=== PATIENT | male | born 1960 | race Caucasian/White ===

== ENCOUNTER 2017-04-07 07:37 | Emergency (ER) | payer MEDICAID, OTHER ==
[~2017-04-07] VITALS: Ht 167.6 cm; Wt 65.9 kg
[2017-04-07] MEDS ORDERED: ASPI325T28 PO (07:58)
[2017-04-07] MEDS ORDERED: OXAZEPAM 15 MG CAP PO ONE (08:00)
[2017-04-07] MEDS ORDERED: NS 1,000 ML IV ONE (08:00)
--- NOTE | 2017-04-07 08:13 | REP ---
Chest one-view HISTORY: Chest pain Comparison: None The lungs are clear. The heart is normal in size. The pulmonary vasculature is normal in appearance. Impression: No acute disease. Signed by Too Walter MD 04/07/2017 08:05 A
[2017-04-07 08:17] LABS: BASO % 0.5 % (0.0-1.0); EOS # 0.1 K/mm3 (0.0-0.50); EOS % 1.4 % (0.0-3.0); LARGE UNSTAINED CELL # 0.1 K/mm3 (0.0-0.4); LARGE UNSTAINED CELL % 1.7 % (0.0-4.0); LYMPH % 14.8 % (24.0-44.0); MEAN CORPUSCULAR HEMOGLOBIN 32.6 pg (27.0-33.0); MEAN CORPUSCULAR HGB CONC 33.1 g/dl (32.0-36.5); MEAN CORPUSCULAR VOLUME 98.6 fl (80.0-96.0); MONO # 0.5 K/mm3 (0.0-0.8); MONO % 7.2 % (0.0-5.0); NEUTROPHILS # 4.6 K/mm3 (1.8-7.7); NEUTROPHILS % 74.4 % (36.0-66.0); PLATELET COUNT, AUTOMATED 258 k/mm3 (150-450); RED CELL DISTRIBUTION WIDTH 14.7 % (11.5-14.5); WHITE BLOOD COUNT 6.2 K/mm3 (4.0-10.0)
[2017-04-07 08:26] LABS: INR 0.99
[2017-04-07 08:40] LABS: ALBUMIN 4.2 GM/DL (3.2-5.2); ALBUMIN/GLOBULIN RATIO 1.35 (1.00-1.93); ALKALINE PHOSPHATASE 59 U/L (45-117); ALT/SGPT 32 U/L (12-78); ANION GAP 8 MEQ/L (8-16); AST/SGOT 32 U/L (15-37); BILIRUBIN,DIRECT 0.1 MG/DL (0.0-0.2); BILIRUBIN,TOTAL 0.4 MG/DL (0.2-1.0); BLOOD UREA NITROGEN 6 MG/DL (7-18); CALCIUM LEVEL 8.9 MG/DL (8.5-10.1); CARBON DIOXIDE LEVEL 25 MEQ/L (21-32); CHLORIDE LEVEL 100 MEQ/L (98-107); FREE T4 1.01 NG/DL (0.76-1.46); GLOMERULAR FILTRATION RATE > 60.0 (>56); GLUCOSE, FASTING 91 MG/DL (70-105); SODIUM LEVEL 133 MEQ/L (136-145); TOTAL PROTEIN 7.3 GM/DL (6.4-8.2)
[2017-04-07] MEDS ORDERED: PIPERACILLIN/TAZOBACTAM SOD 3.375 GM in D5W MINI-BAG PLUS 50 ML IV ONE (08:45)
[2017-04-07] MEDS ORDERED: ISOVUE-370 76% 100ML VIAL (Q9967) As Ordered ONE (09:17)
[2017-04-07 10:33] VITALS: BP 149/78
--- NOTE | 2017-04-07 10:57 | REP ---
CT ANGIO CHEST: HISTORY: Shortness of breath. CONTRAST: Isovue-370, 75 mL. There are no filling defects in the main, right and the left pulmonary arteries or their branches. The lungs are clear. There is no pleural effusion. There is no mediastinal mass. The heart is normal in size. IMPRESSION: There is no pulmonary embolism. Signed by Too Walter MD 04/07/2017 11:06 A
--- NOTE | 2017-04-07 11:22 | ECGEPIP ---
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
== END 2017-04-07 10:40 | disposition home or self-care (01) ==
LOC: M ED 07:37
DX: R06.00 Dyspnea, unspecified (principal); R42 Dizziness and giddiness; F17.210 Nicotine dependence, cigarettes, uncomplicated
CPT/HCPCS: 36415; 71010; 71275; 80048; 80076; 82550; 82553; 83880; 84439; 84443; 85025; 85379; 85610; 85730; 93005; 93041; 94760; 96360; 96361; 99285; Q9967

== ENCOUNTER 2017-04-19 00:40 | Emergency (ER) | payer MEDICAID, SELFPAY ==
[~2017-04-19] VITALS: Ht 167.6 cm; Wt 76.0 kg
[~2017-04-19 00:40] MED LIST: ASPI325T28 PO
[2017-04-19 00:46] VITALS: BP 151/81
== END 2017-04-19 02:51 | disposition home or self-care (01) ==
LOC: EDBD 00:40 → M ED 00:40
DX: F10.129 Alcohol abuse with intoxication, unspecified (principal); Z72.0 Tobacco use

== ENCOUNTER → 2018-07-09 | Outpatient (REF) | payer MEDICAID, SELFPAY ==
[2018-07-09 20:22] LABS: BASO # 0.1 10^3/uL (0.0-0.2); BASO % 0.6 % (0.0-1.0); EOS # 0.2 10^3/uL (0.0-0.50); EOS % 2.3 % (0.0-3.0); HEMATOCRIT 41.3 % (42.0-52.0); HEMOGLOBIN 13.8 g/dl (13.5-17.5); IMMATURE GRANULOCYTE % 0.3 % (0-3.0); LYMPH % 23.5 % (24.0-44.0); MEAN CORPUSCULAR HEMOGLOBIN 32.2 pg (27.0-33.0); MEAN CORPUSCULAR HGB CONC 33.4 g/dl (32.0-36.5); MEAN CORPUSCULAR VOLUME 96.3 fl (80.0-96.0); MONO # 0.6 10^3/uL (0.0-0.8); MONO % 6.5 % (0.0-5.0); NEUTROPHILS # 5.8 10^3/uL (1.8-7.7); NEUTROPHILS % 66.8 % (36.0-66.0); PLATELET COUNT, AUTOMATED 264 10^3/uL (150-450); RED BLOOD COUNT 4.29 10^6/uL (4.30-6.10); RED CELL DISTRIBUTION WIDTH 14.5 % (11.5-14.5); WHITE BLOOD COUNT 8.6 10^3/uL (4.0-10.0)
[2018-07-09 20:41] LABS: ALBUMIN 4.2 GM/DL (3.2-5.2); ALKALINE PHOSPHATASE 53 U/L (45-117); ALT/SGPT 16 U/L (12-78); ANION GAP 7 MEQ/L (8-16); AST/SGOT 12 U/L (7-37); BILIRUBIN,TOTAL 0.3 MG/DL (0.2-1.0); BLOOD UREA NITROGEN 12 MG/DL (7-18); CALCIUM LEVEL 8.7 MG/DL (8.5-10.1); CARBON DIOXIDE LEVEL 28 MEQ/L (21-32); CHLORIDE LEVEL 107 MEQ/L (98-107); CHOLESTEROL LEVEL 212 MG/DL (<200); CHOLESTEROL RISK RATIO 4.076 (<5); CREATININE FOR GFR 0.81 MG/DL (0.70-1.30); GLOMERULAR FILTRATION RATE > 60.0 (>56); GLUCOSE, FASTING 88 MG/DL (70-100); HDL CHOLESTEROL 52 MG/DL (>40); LDL CHOLESTEROL 141 MG/DL (<100); NON-HDL-C 160 MG/DL; POTASSIUM SERUM 4.1 MEQ/L (3.5-5.1); SODIUM LEVEL 142 MEQ/L (136-145); TOTAL PROTEIN 7.2 GM/DL (6.4-8.2); TRIGLYCERIDES LEVEL 97 MG/DL (<150)
[2018-07-09 20:42] LABS: TOTAL 25(OH) VITAMIN D 21.1 NG/ML (30.0-100.0)
[2018-07-09 20:47] LABS: ESTIMATED AVERAGE GLUCOSE 100 MG/DL (60-110); HEMOGLOBIN A1c 5.1 %
[2018-07-11 11:17] LABS: HIV 1&2 SCREEN CENTAUR NEGATIVE (NEGATIVE)
[2018-07-11 14:18] LABS: HEPATITIS C VIRUS ABY INDEX < 0.0 INDEX (<0.8)
== END ==
LOC: M LAB REF 09:59
DX: Z00.00 Encounter for general adult medical examination without abnormal findings (principal); R53.81 Other malaise
CPT/HCPCS: 84443

== ENCOUNTER → 2018-08-06 | Outpatient (REF) | payer MEDICAID | LOC: M LAB REF 14:10 | DX: D10.5 Benign neoplasm of other parts of oropharynx (principal) ==

== ENCOUNTER 2019-03-27 20:05 | Emergency (ER) | payer MEDICAID ==
[~2019-03-27] VITALS: Ht 167.6 cm; Wt 72.7 kg
[~2019-03-27 20:05] MED LIST changes: +ASPI-527 PO; -ASPI325T28 PO
[2019-03-27 20:13] VITALS: BP 151/86
== END 2019-03-27 21:02 | disposition left against medical advice (07) ==
LOC: M ED 20:05
DX: F10.10 Alcohol abuse, uncomplicated (principal); Z53.21 Procedure and treatment not carried out due to patient leaving prior to being seen by health care provider

== ENCOUNTER 2019-03-28 21:08 | Emergency (ER) | payer MEDICAID ==
[~2019-03-28 21:08] MED LIST changes: +ASPI-222 PO; -ASPI-527 PO
[2019-03-28 21:27] LABS: HEMATOCRIT 36.9 % (42.0-52.0); HEMOGLOBIN 13.1 g/dl (13.5-17.5); MEAN CORPUSCULAR HEMOGLOBIN 33.7 pg (27.0-33.0); MEAN CORPUSCULAR HGB CONC 35.5 g/dl (32.0-36.5); MEAN CORPUSCULAR VOLUME 94.9 fl (80.0-96.0); PLATELET COUNT, AUTOMATED 236 10^3/uL (150-450); RED BLOOD COUNT 3.89 10^6/uL (4.30-6.10); WHITE BLOOD COUNT 8.1 10^3/uL (4.0-10.0)
[2019-03-28 21:40] LABS: AMPHETAMINES LEVEL URINE NEGATIVE (NEGATIVE); BARBITURATES URINE NEGATIVE (NEGATIVE); BENZODIAZEPINES URINE NEGATIVE (NEGATIVE); CANNABINOIDS URINE NEGATIVE (NEGATIVE); COCAINE METABOLITE URINE NEGATIVE (NEGATIVE); METHADONE URINE NEGATIVE (NEGATIVE); OPIATES URINE NEGATIVE (NEGATIVE); PHENCYCLIDINE URINE NEGATIVE (NEGATIVE)
[2019-03-28 21:53] LABS: ACETAMINOPHEN LEVEL < 2.0 UG/ML (10.0-30.0); ALBUMIN 4.2 GM/DL (3.2-5.2); ALT/SGPT 53 U/L (12-78); BILIRUBIN,DIRECT 0.3 MG/DL (0.0-0.2); BILIRUBIN,TOTAL 0.6 MG/DL (0.2-1.0); BLOOD UREA NITROGEN 9 MG/DL (7-18); CALCIUM LEVEL 7.8 MG/DL (8.5-10.1); CARBON DIOXIDE LEVEL 23 MEQ/L (21-32); CHLORIDE LEVEL 101 MEQ/L (98-107); CREATININE FOR GFR 0.62 MG/DL (0.70-1.30); ETHYL ALCOHOL (ETHANOL) 0.291 % (0.000-0.010); GLOMERULAR FILTRATION RATE > 60.0 (>56); GLUCOSE, FASTING 76 MG/DL (70-100); POTASSIUM SERUM 3.8 MEQ/L (3.5-5.1); SALICYLATE LEVEL 3.2 MG/DL (5.0-30.0); SODIUM LEVEL 134 MEQ/L (136-145); THYROID STIMULATING HORMONE 0.883 uIU/ML (0.358-3.740)
[2019-03-29 06:58] VITALS: BP 133/89
== END 2019-03-29 07:57 | disposition home or self-care (01) ==
LOC: M ED 21:08
DX: F10.129 Alcohol abuse with intoxication, unspecified (principal); Y90.1 Blood alcohol level of 20-39 mg/100 ml; F91.9 Conduct disorder, unspecified; F31.9 Bipolar disorder, unspecified; Z79.82 Long term (current) use of aspirin
CPT/HCPCS: 36415; 80048; 80076; 80307; 84443; 85027; 99284; G0480

== ENCOUNTER 2019-04-23 03:40 | Emergency (ER) | payer MEDICAID ==
[2019-04-23 03:51] VITALS: BP 122/82
== END 2019-04-23 04:19 | disposition home or self-care (01) ==
LOC: M ED 03:40
DX: F10.129 Alcohol abuse with intoxication, unspecified (principal); Z79.82 Long term (current) use of aspirin

== ENCOUNTER 2019-05-08 22:56 | Emergency (ER) | payer MEDICAID, OTHER ==
[~2019-05-08 22:56] MED LIST changes: -ASPI-222 PO; +ASPI-527 PO
[2019-05-08 23:40] LABS: BASO # 0.1 10^3/uL (0.0-0.2); BASO % 0.8 % (0.0-1.0); EOS # 0.2 10^3/uL (0.0-0.50); EOS % 2.6 % (0.0-3.0); HEMATOCRIT 35.8 % (42.0-52.0); HEMOGLOBIN 12.6 g/dl (13.5-17.5); LYMPH # 2.5 10^3/uL (1.5-4.5); LYMPH % 39.1 % (24.0-44.0); MEAN CORPUSCULAR HEMOGLOBIN 34.2 pg (27.0-33.0); MEAN CORPUSCULAR HGB CONC 35.2 g/dl (32.0-36.5); MEAN CORPUSCULAR VOLUME 97.3 fl (80.0-96.0); MONO # 0.5 10^3/uL (0.0-0.8); MONO % 7.9 % (0.0-5.0); NEUTROPHILS # 3.2 10^3/uL (1.8-7.7); NEUTROPHILS % 49.3 % (36.0-66.0); PLATELET COUNT, AUTOMATED 308 10^3/uL (150-450); RED BLOOD COUNT 3.68 10^6/uL (4.30-6.10); WHITE BLOOD COUNT 6.4 10^3/uL (4.0-10.0)
[2019-05-08 23:50] LABS: INR 1.09; PROTHROMBIN TIME 13.8 SECONDS (11.8-14.0)
[2019-05-08 23:51] LABS: PARTIAL THROMBOPLASTIN TIME 33.3 SECONDS (25.0-38.4)
[2019-05-08 23:59] LABS: BLOOD UREA NITROGEN 8 MG/DL (7-18); CALCIUM LEVEL 8.2 MG/DL (8.5-10.1); CARBON DIOXIDE LEVEL 26 MEQ/L (21-32); CHLORIDE LEVEL 102 MEQ/L (98-107); CREATININE FOR GFR 0.64 MG/DL (0.70-1.30); GLOMERULAR FILTRATION RATE > 60.0 (>56); GLUCOSE, FASTING 106 MG/DL (70-100); POTASSIUM SERUM 3.4 MEQ/L (3.5-5.1); SODIUM LEVEL 138 MEQ/L (136-145)
[2019-05-09 00:26] LABS: ETHYL ALCOHOL (ETHANOL) 0.249 % (0.000-0.010)
[2019-05-09 02:08] VITALS: BP 107/73
--- NOTE | 2019-06-03 10:52 | REP ---
CT study of the cervical spine without contrast: History: Trauma. Repeat dictation. Preliminary report is provided at the time of exam by [facility]. The study is acquired on May 08, 2019 and is presented to me for repeat dictation on June 03, 2019. Technique: Helical scanning is acquired and overlapping 2 mm high resolution axial images were generated and reviewed at bone and soft tissue window settings. Coronal and sagittal multiplanar re-formations images are generated. CT findings: There is no evidence of cervical spine element fracture. No skull base fracture is seen. Cervical vertebral body heights are preserved. Alignment is normal. Facet joints are normally aligned bilaterally at each cervical level on multiplanar re-formations images. There is no evidence of intraspinal or paraspinal hematoma. No extra vertebral abnormality is seen. There are moderate degenerative spondylosis changes with degenerative disc disease most pronounced at C5-6 and C6-7. There are osteoarthritic facet changes in the mid cervical spine bilaterally. The left C4-5 facet is fused. There is a minimal levoconvex curvature. Impression: Moderate degenerative spondylosis changes. Otherwise negative CT study of the cervical spine without contrast. No fracture seen. Electronically Signed by Mariusz Cardona MD 06/03/2019 10:44 A
--- NOTE | 2019-06-03 10:56 | REP ---
REPEAT DICTATION CT CHEST WITHOUT CONTRAST: HISTORY: Injury in a fall. Blunt trauma. Preliminary report is provided at the time of the exam by [facility]. The study is acquired on May 08, 2019 and is presented to me for repeat dictation on June [address] FINDINGS: Digital preliminary alumnae secretary radiograph is unremarkable. There is no evidence of pneumothorax or hydrothorax or hemothorax. There is minimal bibasilar linear fibrosis. No infiltrate is seen in the lung chauhan. There is no evidence of contusion or mass. There are scattered normal-sized mediastinal lymph nodes. No adenopathy is seen. There is mild vascular calcification in the left coronary artery distribution. A small granulomatous calcification is seen in the dome of the liver. Visualized upper abdominal structures are otherwise unremarkable. Bone window settings show no bony destructive lesion. There are some osteoarthritic changes in the glenohumeral articulations bilaterally. IMPRESSION: No acute disease. Electronically Signed by Mariusz Cardona MD 06/03/2019 03:23 P
--- NOTE | 2019-06-03 10:57 | REP ---
REPEAT DICTATION CT BRAIN WITHOUT CONTRAST: HISTORY: Trauma. Preliminary report is provided at the time of examination by [facility]. The study is acquired on May 08, 2019 and is presented to me for repeat dictation on June 03, 2019. CT FINDINGS: Preliminary automotive manufacturer views are unremarkable. The patient is edentulous. Bone window settings demonstrate an intact bony calvarium. No skull fracture is appreciated. Visualized paranasal sinuses are clear. Lateral, third, and fourth ventricles are normal in size and position. Lutz-white differentiation pattern is normal above and below the tentorium. There is no evidence of intracranial hemorrhage. There is minimal vascular calcification in the distal carotids. No mass, infarct, extra-axial fluid collection, or midline shift is seen. IMPRESSION: Minimal vascular calcification. Otherwise normal noncontrast head CT. Electronically Signed by Mariusz Cardona MD 06/03/2019 03:23 P
== END 2019-05-09 02:12 | disposition home or self-care (01) ==
LOC: M ED 22:56
DX: F10.129 Alcohol abuse with intoxication, unspecified (principal); Y90.1 Blood alcohol level of 20-39 mg/100 ml; Z79.82 Long term (current) use of aspirin
CPT/HCPCS: 36415; 70450; 71250; 72125; 80048; 85025; 85610; 85730; 99284; G0480

== ENCOUNTER 2019-05-17 18:10 | Emergency (ER) | payer OTHER ==
[~2019-05-17] VITALS: Ht 167.6 cm; Wt 63.6 kg
[2019-05-17 18:51] LABS: HEMATOCRIT 37.3 % (42.0-52.0); MEAN CORPUSCULAR HGB CONC 34.9 g/dl (32.0-36.5); MEAN CORPUSCULAR VOLUME 97.6 fl (80.0-96.0); PLATELET COUNT, AUTOMATED 323 10^3/uL (150-450); RED BLOOD COUNT 3.82 10^6/uL (4.30-6.10); WHITE BLOOD COUNT 6.9 10^3/uL (4.0-10.0)
[2019-05-17 19:26] LABS: ACETAMINOPHEN LEVEL < 2.0 UG/ML (10.0-30.0); ALBUMIN 3.9 GM/DL (3.2-5.2); ALT/SGPT 31 U/L (12-78); BILIRUBIN,DIRECT < 0.1 MG/DL (0.0-0.2); BILIRUBIN,TOTAL 0.2 MG/DL (0.2-1.0); BLOOD UREA NITROGEN 7 MG/DL (7-18); CALCIUM LEVEL 8.6 MG/DL (8.5-10.1); CARBON DIOXIDE LEVEL 28 MEQ/L (21-32); CHLORIDE LEVEL 101 MEQ/L (98-107); CREATININE FOR GFR 0.66 MG/DL (0.70-1.30); ETHYL ALCOHOL (ETHANOL) 0.341 % (0.000-0.010); GLOMERULAR FILTRATION RATE > 60.0 (>56); GLUCOSE, FASTING 96 MG/DL (70-100); SALICYLATE LEVEL 3.1 MG/DL (5.0-30.0); SODIUM LEVEL 134 MEQ/L (136-145); THYROID STIMULATING HORMONE 0.903 uIU/ML (0.358-3.740)
[2019-05-17 19:35] LABS: AMPHETAMINES LEVEL URINE NEGATIVE (NEGATIVE); BARBITURATES URINE NEGATIVE (NEGATIVE); BENZODIAZEPINES URINE NEGATIVE (NEGATIVE); CANNABINOIDS URINE NEGATIVE (NEGATIVE); COCAINE METABOLITE URINE NEGATIVE (NEGATIVE); METHADONE URINE NEGATIVE (NEGATIVE); OPIATES URINE NEGATIVE (NEGATIVE); PHENCYCLIDINE URINE NEGATIVE (NEGATIVE)
--- NOTE | 2019-05-17 19:57 | REPVR ---
EXAM: CT Head Without Contrast EXAM DATE/TIME: 05/17/2019 7:06 PM CLINICAL HISTORY: 58 years old, male; Injury or trauma; Fall; Initial encounter; Blunt trauma (contusions or hematomas) TECHNIQUE: Imaging protocol: Computed tomography images of the head without contrast. Radiation optimization: All CT scans at this facility use at least one of these dose optimization techniques: automated exposure control; mA and/or kV adjustment per patient size (includes targeted exams where dose is matched to clinical indication); or iterative reconstruction. COMPARISON: CT Head without contrast 05/08/2019 11:25 PM FINDINGS: Brain: Subtle, patchy areas of hypoattenuation in the periventricular and subcortical white matter, nonspecific but suggestive of mild chronic small vessel ischemic disease. No CT evidence of acute intracranial hemorrhage or acute territorial infarction. No significant mass effect or midline shift. Basal cisterns patent. Ventricles: Prominence of the cortical sulci, cisterns and ventricular system, consistent with cerebral and cerebellar volume loss. Bones/joints: No acute osseous abnormality. Sinuses: Grossly unremarkable. Mastoid air cells: Partial opacification and sclerosis of the right mastoid air cells. Soft tissues: Grossly unremarkable. Vasculature: Minimal calcific atherosclerotic disease in the cavernous internal carotid arteries. IMPRESSION: 1. No CT evidence of acute intracranial pathology. 2. Additional findings, as above. Electronically signed by: Uday Jon On 05/17/2019 19:57:06 PM
--- NOTE | 2019-05-17 20:02 | REPVR ---
EXAM: CT Cervical Spine Without Contrast EXAM DATE/TIME: 05/17/2019 7:06 PM CLINICAL HISTORY: 58 years old, male; Injury or trauma; Fall; Initial encounter; Blunt trauma TECHNIQUE: Imaging protocol: Computed tomography images of the cervical spine without contrast. Coronal and sagittal reformatted images were created and reviewed. Radiation optimization: All CT scans at this facility use at least one of these dose optimization techniques: automated exposure control; mA and/or kV adjustment per patient size (includes targeted exams where dose is matched to clinical indication); or iterative reconstruction. COMPARISON: CT Spine,cervical w/o contrast 05/08/2019 11:25 PM FINDINGS: Vertebrae: Osteopenia. Mild straightening of the normal cervical lordosis. Alignment anatomic. No CT evidence of acute fracture, dislocation or subluxation. Vertebral body heights maintained. Discs/Spinal canal/Neural foramina: Mild multilevel degenerative changes, characterized by disc space narrowing, osteophytosis and uncovertebral and facet joint hypertrophy. Mild multilevel spinal canal and neural foraminal narrowing. Soft tissues: Grossly unremarkable. Lungs: Grossly unremarkable. IMPRESSION: 1. No CT evidence of acute cervical spine traumatic injury. 2. Additional findings, as above. Electronically signed by: Uday Jon On 05/17/2019 20:01:28 PM
[2019-05-17 20:07] VITALS: BP 124/68
== END 2019-05-17 20:23 | disposition home or self-care (01) ==
LOC: M ED 18:10 → EDBD 18:10 → M ED 20:23
DX: F10.129 Alcohol abuse with intoxication, unspecified (principal); Y90.1 Blood alcohol level of 20-39 mg/100 ml; Z79.82 Long term (current) use of aspirin
CPT/HCPCS: 36415; 70450; 72125; 80048; 80076; 80307; 84443; 85027; 99284; G0480

== ENCOUNTER 2019-05-22 19:59 | Emergency (ER) | payer OTHER ==
[~2019-05-22] VITALS: Ht 167.6 cm; Wt 64.2 kg
[2019-05-23 00:56] VITALS: BP 132/84
== END 2019-05-23 00:58 | disposition home or self-care (01) ==
LOC: M ED 19:59
DX: F10.20 Alcohol dependence, uncomplicated (principal); F10.129 Alcohol abuse with intoxication, unspecified; Z72.0 Tobacco use; Z79.82 Long term (current) use of aspirin

== ENCOUNTER 2019-05-29 00:02 | Emergency (ER) | payer OTHER ==
[~2019-05-29] VITALS: Ht 167.6 cm; Wt 64.2 kg
--- NOTE | 2019-05-29 00:47 | REPVR ---
EXAM: CT Head Without Contrast EXAM DATE/TIME: 05/29/2019 12:13 AM CLINICAL HISTORY: 58 years old, male; Injury or trauma; Fall; Initial encounter; Concussion / head injury TECHNIQUE: Imaging protocol: Computed tomography of the head without contrast. Radiation optimization: All CT scans at this facility use at least one of these dose optimization techniques: automated exposure control; mA and/or kV adjustment per patient size (includes targeted exams where dose is matched to clinical indication); or iterative reconstruction. COMPARISON: CT Head without contrast 05/17/2019 7:10 PM FINDINGS: Brain: Subtle, patchy areas of hypoattenuation in the periventricular and subcortical white matter, nonspecific but suggestive of mild chronic small vessel ischemic disease. No CT evidence of acute intracranial hemorrhage or acute territorial infarction. No significant mass effect or midline shift. Basal cisterns patent. Ventricles: Prominence of the cortical sulci, cisterns and ventricular system, consistent with cerebral and cerebellar volume loss. Bones/joints: No acute osseous abnormality. Sinuses: Minimal ethmoid and left maxillary sinus mucosal thickening. Mastoid air cells: Partial opacification and sclerosis of the right mastoid air cells. Soft tissues: Grossly unremarkable. Vasculature: Minimal calcific atherosclerotic disease in the cavernous internal carotid arteries. IMPRESSION: 1. No CT evidence of acute intracranial pathology. 2. Additional findings, as above. Electronically signed by: Uday Jon On 05/29/2019 00:46:39 AM
--- NOTE | 2019-05-29 00:56 | REPVR ---
EXAM: CT Cervical Spine Without Contrast EXAM DATE/TIME: 05/29/2019 12:13 AM CLINICAL HISTORY: 58 years old, male; Injury or trauma; Fall; Initial encounter; Concussion /head injury TECHNIQUE: Imaging protocol: Computed tomography images of the cervical spine without contrast. Axial, coronal and sagittal reformatted images were created and reviewed. Radiation optimization: All CT scans at this facility use at least one of these dose optimization techniques: automated exposure control; mA and/or kV adjustment per patient size (includes targeted exams where dose is matched to clinical indication); or iterative reconstruction. COMPARISON: CT Spine,cervical w/o contrast 05/17/2019 7:10 PM FINDINGS: Vertebrae: Osteopenia. Normal cervical lordosis. Alignment anatomic. Mild levoscoliosis. No CT evidence of acute fracture, dislocation or subluxation. Vertebral body heights maintained. Discs/Spinal canal/Neural foramina: Mild multilevel degenerative changes, characterized by disc space narrowing, osteophytosis and uncovertebral and facet joint hypertrophy. Mild multilevel spinal canal and neural foraminal narrowing. Soft tissues: Grossly unremarkable. Lungs: Grossly unremarkable. IMPRESSION: 1. No CT evidence of acute cervical spine traumatic injury. 2. Additional findings, as above. Electronically signed by: Uday Jon On 05/29/2019 00:55:48 AM
[2019-05-29 03:49] VITALS: BP 114/80
--- NOTE | 2019-05-29 07:56 | REP ---
Clinical: Trauma. Technique: Neutral and frog lateral views of the left hip. Findings: Mild degenerative changes include increased sclerosis at the acetabular roof with subtle adjacent spurring and mild medial joint space narrowing. No acute fracture or dislocation. Vascular calcifications noted. Impression: No acute fracture dislocation. Electronically Signed by Darien Vora MD 05/29/2019 07:48 A
== END 2019-05-29 03:53 | disposition home or self-care (01) ==
LOC: M ED 00:02
DX: F10.129 Alcohol abuse with intoxication, unspecified (principal); Y90.1 Blood alcohol level of 20-39 mg/100 ml; Z79.82 Long term (current) use of aspirin; F17.210 Nicotine dependence, cigarettes, uncomplicated
CPT/HCPCS: 36415; 70450; 72125; 73502; 99284; G0480

== ENCOUNTER 2019-11-21 16:13 | Inpatient (IN) | payer OTHER ==
[~2019-11-21] VITALS: Ht 167.6 cm; Wt 67.3 kg
[2019-11-21] MEDS ORDERED: BUSP10TA PO (16:28)
[2019-11-21] MEDS ORDERED: NS 1,000 ML IV ONE (16:45)
[2019-11-21] MEDS ORDERED: PANTOPRAZOLE 40MG INJ (PROTONIX) (C9113) IV ONE (16:45)
[2019-11-21] MEDS ORDERED: METOCLOPRAMIDE INJ 10MG/2ML VIAL (J2765) IV ONE (16:45)
[2019-11-21 16:56] LABS: BASO # 0.1 10^3/uL (0.0-0.2); BASO % 0.7 % (0.0-1.0); EOS # 0.1 10^3/uL (0.0-0.5); EOS % 0.8 % (0.0-3.0); HEMATOCRIT 41.5 % (42.0-52.0); HEMOGLOBIN 14.1 g/dl (13.5-17.5); LYMPH # 1.2 10^3/uL (1.5-5.0); LYMPH % 13.3 % (24.0-44.0); MEAN CORPUSCULAR HEMOGLOBIN 33.4 pg (27.0-33.0); MEAN CORPUSCULAR VOLUME 98.3 fl (80.0-96.0); MONO # 0.8 10^3/uL (0.0-0.8); MONO % 8.8 % (0.0-5.0); NEUTROPHILS # 6.7 10^3/uL (1.5-8.5); NEUTROPHILS % 75.9 % (36.0-66.0); PLATELET COUNT, AUTOMATED 285 10^3/uL (150-450); RED BLOOD COUNT 4.22 10^6/uL (4.30-6.10); WHITE BLOOD COUNT 8.9 10^3/uL (4.0-10.0)
[2019-11-21 17:12] LABS: INR 1.03; PROTHROMBIN TIME 13.2 SECONDS (11.8-14.0)
[2019-11-21 17:13] LABS: PARTIAL THROMBOPLASTIN TIME 34.3 SECONDS (25.0-38.4)
[2019-11-21 17:25] LABS: ALBUMIN 4.4 GM/DL (3.2-5.2); ALT/SGPT 42 U/L (12-78); BILIRUBIN,DIRECT 0.1 MG/DL (0.0-0.2); BILIRUBIN,TOTAL 0.5 MG/DL (0.2-1.0); BLOOD UREA NITROGEN 12 MG/DL (7-18); CALCIUM LEVEL 8.8 MG/DL (8.8-10.2); CARBON DIOXIDE LEVEL 26 MEQ/L (21-32); CHLORIDE LEVEL 102 MEQ/L (98-107); CK-MB VALUE MASS 9.9 NG/ML (<3.6); CPK CREATINE PHOSPHOKINASE 680 U/L (39-308); CREATININE FOR GFR 0.75 MG/DL (0.70-1.30); GLOMERULAR FILTRATION RATE > 60.0 (>49); GLUCOSE, FASTING 68 MG/DL (70-100); LIPASE 70 U/L (73-393); MB/CK RELATIVE INDEX 1.46 (< OR =4); POTASSIUM SERUM 4.1 MEQ/L (3.5-5.1); SODIUM LEVEL 139 MEQ/L (136-145); TOTAL PROTEIN 7.7 GM/DL (6.4-8.2); TROPONIN I < 0.02 NG/ML (< 0.10)
[2019-11-21] MEDS ORDERED: ISOVUE-370 76% 100ML VIAL (Q9967) As Ordered ONE (17:40)
[2019-11-21] MEDS ORDERED: chlorproMAZINE INJ 50MG/2ML AMP (J3230) IM STA (18:24)
--- NOTE | 2019-11-21 18:32 | REPVR ---
PROCEDURE INFORMATION: Exam: CT Abdomen And Pelvis With Contrast Exam date and time: 11/21/2019 5:41 PM Age: 59 years old Clinical indication: Abdominal pain; Epigastric; Additional info: Epigastric pain; Bloody emesis TECHNIQUE: Imaging protocol: Computed tomography of the abdomen and pelvis with intravenous contrast. Radiation optimization: All CT scans at this facility use at least one of these dose optimization techniques: automated exposure control; mA and/or kV adjustment per patient size (includes targeted exams where dose is matched to clinical indication); or iterative reconstruction. Contrast material: ISOVUE 370; Contrast volume: 100 ml; Contrast route: IV; COMPARISON: CR Hip, Ap,Lat 05/29/2019 12:29 AM FINDINGS: Liver: Diffuse hepatic steatosis. Few scattered subcentimeter low-density lesions throughout the liver, too small to characterize though statistically representing cysts. Gallbladder and bile ducts: Unremarkable. No ductal dilation. Pancreas: Unremarkable. No ductal dilation. Spleen: Unremarkable. Adrenals: Unremarkable. Kidneys and ureters: 1.4 cm low-density cyst in the left kidney, to which no further follow-up is necessary. Additional subcentimeter low density lesions in the left kidney, too small to characterize though statistically representing cysts. No hydronephrosis or stones. Mild bilateral nonspecific perinephric stranding. Stomach and bowel: Severe circumferential wall thickening involving the distal esophagus/gastric cardia. Small and large bowel loops are unremarkable. Appendix: The appendix is normal. Intraperitoneal space: No pneumoperitoneum. No significant fluid collection. Vasculature: Moderate atherosclerotic calcifications of the aorta and major branches. Lymph nodes: No enlarged lymph nodes. Bladder: Mildly distended though otherwise unremarkable. Reproductive: Unremarkable as visualized. Bones/joints: Multilevel mild degenerative changes of the visualized spine. No acute osseous lesion or fracture. Soft tissues: Unremarkable. IMPRESSION: 1. Severe circumferential wall thickening involving the distal esophagus/gastric cardia. Differential includes esophagitis/gastritis versus neoplasm. Recommend GI consultation. 2. Other chronic findings, as above. COMMENTS: Consistent with the [employer]'s Incidental Findings Committee white paper (J Am Caro Radiol 2018): Any incidental cystic renal lesion classified in this report as too small to characterize or simple appearing is likely a benign cyst. No follow-up imaging is recommended for these lesions per consensus recommendations based on imaging criteria. Electronically signed by: Richard Allred On 11/21/2019 18:32:11 PM
[2019-11-21] MEDS ORDERED: NS 1,000 ML IV SCH (19:46)
[2019-11-21] MEDS ORDERED: ONDANSETRON 4MG/2ML VIAL (J2405) IV PRN (20:00)
[2019-11-21] MEDS ORDERED: LORazepam 2 MG/ML VIAL (J2060) IM PRN (20:00)
[2019-11-21] MEDS: THIAMINE HCL 200 MG/2 ML VIAL (J3411) IM SCH (20:24)
[2019-11-21] MEDS: OCTREOTIDE ACETATE 100 MCG/ML VIAL (J2354) IV SCH (20:25)
[2019-11-21 20:30] LABS: INR 1.07; PROTHROMBIN TIME 13.6 SECONDS (11.8-14.0)
[2019-11-21 20:31] LABS: PARTIAL THROMBOPLASTIN TIME 35.3 SECONDS (25.0-38.4)
[2019-11-21] MEDS ORDERED: FOLIC ACID 1 MG in NS 50 ML IV SCH (21:00)
[2019-11-21 21:08] VITALS: BP_SYST 132; BP_SYST 133; BP_SYST 137; BP_DIAS 67; BP_DIAS 71; BP_DIAS 82
--- NOTE | 2019-11-21 21:29 | HPEPDOC ---
[facility] Medical History & Physical Date of Admission Nov 21, 2019 Date of Service: Nov 21, [address] Abelardo Holt Attending Physician: THA BOLAND MD History and Physical CHIEF COMPLAINT: Vomiting blood HISTORY OF PRESENT ILLNESS: Patient is a 59-year-old male who presents to the emergency department earlier this morning with chief complaint of vomiting b lood. Patient says he had the hiccups earlier this morning so he said his fingers in his throat which he says helps him somewhat hiccups. Patient says whenever he vomits he no longer has the hiccups. Patient says he vomited about 4-5 times. Patient states the first vomit looked like it may contain some coffee-like material. The other times he vomited had bright red blood including the last time he vomited having a significant amount according the patient. Patient states that he has not vomited since being in the emergency department and does not feel nauseous at this time. Patient states that he drinks a significant amount of alcohol on a daily basis. He says this number varies depending on the day however, it appears that a 24 pack of beer lasts him 1-2 days. When questioned about some scratches on his forehead, patient states that he tripped over himself drunk a few days ago causing him to fall face first into a wall. Patient reports no headache or any other symptoms from this fall other than the scratches. REVIEW OF SYSTEMS: General: Patient denies fevers, chills, night sweats, unintentional weight loss HEENT: Patient denies headaches, changes in vision, sore throat. Cardiovascular: Patient denies chest pain, chest pressure, or palpitations Respiratory: Patient denies shortness of breath, cough GI: Patient endorses nausea and vomiting earlier today with bloody vomitus. Valeria ent denies constipation or diarrhea : Patient denies pain or difficulty with urination Neurological: Patient denies numbness or tingling in extremities Extremities: Patient denies swelling or pain in extremities Skin: Patient denies any rashes or lesions. Hematologic: Patient denies any easy bruising. Lymphatic: Patient denies any lumps in his neck, axilla, or groin. HOME MEDICATIONS: Please see below. PAST MEDICAL HISTORY: 1. Anxiety. 2. EtOH abuse. Status post hernia repair PAST SURGICAL HISTORY: 1. Multiple surgeries on right arm to repair fractures. 2. umbilical hernia repair. SOCIAL HISTORY: Patient lives at home alone but does have a girlfriend who he drinks alcohol with. Patient states that he does not drink that much when he is with himself however, when he is drinking with his girlfriend, they do drink a significant amount. Patient was unable to quantify the exact amount but he says a 24 pack of beer lasts 1-2 days. Patient says he also smokes and does other kinds of drugs however, he would not specify with the exception of saying he refrains from IV drug use. 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 FAMILY HISTORY: Patient says that high blood pressure may run in his family but he is unsure ALLERGIES: Please see below. PHYSICAL EXAMINATION: VITAL SIGNS: Temperature 98.1, pulse 114, respiratory rate 20, blood pressure 126/68, pulse oximetry 96% on room air. General: Alert and oriented male patient who was laying on a stretcher when I walked in. Patient had scratches on his for head which had dried blood on them. Patient was able to answer questions appropriately and was not in any acute distress. HEENT: Normocephalic, atraumatic, moist mucous membranes, posterior pharynx was nonerythematous Neck: No lymphadenopathy, thyromegaly, or carotid bruits. Cardiac: Tachycardic rate with a regular rhythm. No murmurs, rubs, or gallops. Pulm: Clear to auscultation bilaterally. No wheezes, rhonchi, rales Abd: Nondistended, nontender to palpation, normal bowel sounds Ext: No edema bilateral lower extremities Neuro: No gross neurological defects. Patient does not have any tremor. Skin: Skin of the arms, lower legs, abdomen, back, head and neck were examined did not show any evidence of rash or lesions. LABORATORY DATA: See below. IMAGING: A CT of the abdomen and pelvis with IV contrast only was reported to show severe circumferential wall thickening involving the distal esophagus/gastric cardia. Differential includes esophagitis/gastritis versus neoplasm. There was also diffuse hepatic steatosis with few scattered subcentimeter low-density lesions throughout the liver, too small to characterize though statistically representing cysts, 1.4 cm low-density cyst in the left kidney, to which no further follow-up is necessary. Additional subcentimeter low-density lesion in the left kidney too small to characterize though statistically representing cysts. MICROBIOLOGY: Please see below. ASSESSMENT: Patient is a 59-year-old male who presents to the emergency department with hematemesis and alcohol abuse. . PLAN: 1. Hematemesis. Patient has been started on octreotide and Protonix IV. Patient is also been started on ciprofloxacin IV. Patient will be given Zofran 4 mg IV every 4 hours when necessary for nausea. Gastroenterology has been consulted. Patient will be nothing by mouth at this time secondary to bleeding. Patient has been started on IV fluids. Plan is for gastroenterology to do an upper endoscopy tomorrow. We will continue to monitor the patient's hemoglobin overnight. We will monitor the patient's hemodynamics as well as to see if more urgent interventions are necessary. Patient will be placed in the progressive care unit. 2. Alcohol use disorder. Patient is unable to quantify his drinking however, it is significant as he drinks on a daily basis and a 24 pack appear last him 1-2 days. Patient will be placed on CIWA protocol every 8 hours. At this time the patient does not appear to be in alcohol withdrawal however we will continue to monitor this. Patient also received thiamine and folic acid injections. 3. Nicotine dependence. Patient was counseled on the benefits of quitting smo lou. When necessary nicotine patch as ordered. 4. DVT prophylaxis: Thromboembolic deterrent stockings and sequential compression devices 5. CODE STATUS: Full code Vital Signs Vital Signs Date Time Temp Pulse Resp B/P (MAP) Pulse Ox O2 Delivery O2 Flow Rate FiO2 11/21/19 20:30 114 20 126/68 (87) 96 Room Air 11/21/19 16:24 98.1 Laboratory Data Labs 24H Laboratory Tests 2 11/21/19 16:38: Immature Granulocyte % (Auto) 0.5, Neutrophils (%) (Auto) 75.9H, Lymphocytes (%) (Auto) 13.3L, Monocytes (%) (Auto) 8.8H, Eosinophils (%) (Auto) 0.8, Basophils (%) (Auto) 0.7, Neutrophils # (Auto) 6.7, Lymphocytes # (Auto) 1.2L, Monocytes # (Auto) 0.8, Eosinophils # (Auto) 0.1, Basophils # (Auto) 0.1, Nucleated Red Blood Cells % (auto) 0.0, Prothrombin Time 13.2, Prothromb Time International Ratio 1.03, Activated Partial Thromboplast Time 34.3, Anion Gap 11, Glomerular Filtration Rate > 60.0, Calcium Level 8.8, Total Bilirubin 0.5, Direct Bilirubin 0.1, Aspartate Amino Transf (AST/SGOT) 49H, Alanine Aminotransferase (ALT/SGPT) 42, Alkaline Phosphatase 66, Total Creatine Kinase 680H, Creatine Kinase MB 9.9H, Creatine Kinase MB Relative Index 1.46, Troponin I < 0.02, Total Protein 7.7, Albumin 4.4, Albumin/Globulin Ratio 1.33, Lipase 70L 11/21/19 20:10: Prothrombin Time 13.6, Prothromb Time International Ratio 1.07, Activated Partial Thromboplast Time 35.3, Ethyl Alcohol Level 0.123H CBC/BMP Laboratory Tests 11/21/19 16:38 11/21/19 20:10 Home Medications Scheduled Buspirone HCl (Buspirone HCl) 10 Mg Tablet, 10 MG PO BID Allergies Coded Allergies: No Known Allergies (Unverified , 05/08/19) A-FIB/CHADSVASC A-FIB History Current/History of A-Fib/PAF?: No GME ATTESTATION GME ATTESTATION My faculty preceptor for this patient encounter was physically present during the encounter and was fully available. All aspects of the patient interview, examination, medical decision making process, and medical care plan development were reviewed and approved by the faculty preceptor. The faculty preceptor is aware and concurs with the plan as stated in the body of this note and will atte st to such by his/her cosignature. ATTENDING NOTE Time of service 8:40 PM I reviewed and edited to H&P and agree with the findings as documented by Dr. Thomas. is a 59-year-old male with a past medical history of alcoholism, anxiety, and tobacco abuse who is admitted for evaluation of hematemesis. 1. GI Bleed (Upper) - IV PPI / Octreotide drip / ciprofloxacin / f/u stool H pylori / GI consult for EGD +/-c-scope / type and screen, iron panel /follow-up serial hemoglobin/follow-up orthostats/SCDs 2. Alcohol abuse- C1 protocol/Ativan/folic acid/timing/precautions/seizure precautions 3. Tobacco abuse - smoking cessation education/nicotine patch when necessary ELEUTERIO THOMAS DO Nov 21, 2019 21:29 THA BOLAND MD Nov 21, 2019 23:34
[2019-11-21 21:30] VITALS: BP 133/82
[2019-11-21] MEDS: CIPROFLOXACIN 400 MG in IV 1 EA IV SCH (21:31)
[2019-11-21] MEDS: PANTOPRAZOLE 40MG INJ (PROTONIX) (C9113) IV SCH (21:31)
[2019-11-22] VITALS: BP_SYST 116; BP_SYST 94; BP_DIAS 56; BP_DIAS 67
[2019-11-22 03:44] LABS: HEMATOCRIT 36.1 % (42.0-52.0); HEMOGLOBIN 12.2 g/dl (13.5-17.5); MEAN CORPUSCULAR HEMOGLOBIN 33.2 pg (27.0-33.0); MEAN CORPUSCULAR HGB CONC 33.8 g/dl (32.0-36.5); MEAN CORPUSCULAR VOLUME 98.1 fl (80.0-96.0); PLATELET COUNT, AUTOMATED 231 10^3/uL (150-450); RED BLOOD COUNT 3.68 10^6/uL (4.30-6.10); WHITE BLOOD COUNT 6.8 10^3/uL (4.0-10.0)
[2019-11-22 04:00] VITALS: BP_SYST 125; BP_SYST 130; BP_SYST 137; BP_DIAS 80; BP_DIAS 82; BP_DIAS 85
[2019-11-22] MEDS: OCTREOTIDE ACETATE 100 MCG/ML VIAL (J2354) IV SCH (04:00)
[2019-11-22 04:11] LABS: ALBUMIN 3.5 GM/DL (3.2-5.2); ALT/SGPT 40 U/L (12-78); BILIRUBIN,TOTAL 0.9 MG/DL (0.2-1.0); BLOOD UREA NITROGEN 15 MG/DL (7-18); CALCIUM LEVEL 7.6 MG/DL (8.8-10.2); CARBON DIOXIDE LEVEL 26 MEQ/L (21-32); CHLORIDE LEVEL 106 MEQ/L (98-107); CREATININE FOR GFR 0.74 MG/DL (0.70-1.30); GLOMERULAR FILTRATION RATE > 60.0 (>49); GLUCOSE, FASTING 65 MG/DL (70-100); MAGNESIUM LEVEL 1.9 MG/DL (1.8-2.4); POTASSIUM SERUM 4.3 MEQ/L (3.5-5.1); SODIUM LEVEL 139 MEQ/L (136-145); TOTAL PROTEIN 6.4 GM/DL (6.4-8.2)
[2019-11-22] MEDS ORDERED: D5W/0.9% SODIUM CHLORIDE 1,000 ML IV SCH (04:30)
[2019-11-22] MEDS ORDERED: D5W/0.45% SODIUM CHLORIDE 1,000 ML IV SCH (04:30)
[2019-11-22] MEDS ORDERED: NICOTINE 21MG/24HR 1 EA TRANSDERMAL TD PRN (04:30)
[2019-11-22 06:00] VITALS: BP 137/80
[2019-11-22 07:44] VITALS: BP 140/73
[2019-11-22 07:49] VITALS: BP 140/73
[2019-11-22] MEDS: PANTOPRAZOLE 40MG INJ (PROTONIX) (C9113) IV SCH (08:02)
[2019-11-22] MEDS: CIPROFLOXACIN 400 MG in IV 1 EA IV SCH (08:02)
[2019-11-22] MEDS: THIAMINE HCL 200 MG/2 ML VIAL (J3411) IM SCH (08:02)
[2019-11-22 08:04] LABS: FERRITIN 217 NG/ML (26-388); IRON (FE) 156 UG/DL (65-175); PERCENT SATURATION 65.5 % (19.7-50.0); TOTAL IRON BINDING CAPACITY 238 UG/DL (250-450)
--- NOTE | 2019-11-22 09:30 | CR.PDOC ---
General Date of Consultation: Nov 22, 2019 Referring Provider: MEREDITH MINAYA MD Attending Physician: MICHELLE YING MD Consultation Primary physician/ hospitalist: -Dr. Meredith Minaya, Reason for consult: -Hematemesis HPI: 59-year-old male patient with chronic alcohol use, not following with any PCP, anxiety, presented to ER with complaints of hiccups, followed by self-induced vomiting, and noticing bright red blood on repeated vomitings. GI was consulted for the same. Patient reports having intermittent episodes of hiccups and when it happens, he uses his fingers to induce vomiting, which improves his hiccups as per patient. This time upon introducing vomiting, he noticed bloody vomit at least 2-3 times, moderate to large amount as per patient. Patient denies any further episode of vomiting since arriving to the hospital. Patient denies any tremulousness, or withdrawal symptoms while off alcohol. Patient also has a history of recurrent falls with head injuries in the past, last CT scan of the head done in May 2019, was normal. Pertinent negative GI symptoms: Patient denies fever, sick contacts, recent travel, diarrhea, abdominal pain, loss of appetite, early satiety or unintentional weight loss. No history of melena or hematochezia. Patient reports regular bowel movements. Review of Systems: GI: as stated above CVS: No chest pain, No palpitations, No leg swelling. RS: No Shortness of breath, No Wheezing, no cough RESOLUTION EXPERT: No dizziness, No motor weakness, No sensory problems Hematology: No bruising, No gum bleeding, Musculoskeletal: No joint pain, ambulating well. Skin: No rash : No hematuria, No burning sensation of the urine ENT: No ear discharge/ pain, No dysphagia. Eyes: No photophobia. Jaundice Home medications: reviewed. Antithrombotic agents: -None Medical h/o: As above. Surgical h/o: None on abdomen. Social h/o: Alcohol: -. Heavy alcohol use, drinks up to 12 pack a day, smoking: Active smoker, IVDA/ drugs:, Denies. Family h/o of GI cancers - None Prior Endoscopies: No prior EGD or colonoscopy. Prior GI evaluations: -None in [facility] Exam: Vitals: reviewed General: Alert and oriented x 3, not in distress HEENT: NO pallor, no icterus. Normal oropharynx, NO cervical lymph nodes. Chest: symmetric with bilateral clear air entry, CVS: S1, S2 heard, normal, no murmurs . Abdomen: non-distended, no surgical scars, soft, non-tender, no palpable masses, normal bowel sounds heard. Rectal exam: Patient refused / Deferred at this time in view of scheduled colonoscopy. Extremities: no pedal edema, pulses palpable. RESOLUTION EXPERT: no focal motor or sensory deficits. Moves all extremities Skin: no rash. Labs: reviewed. Normal platelet count, slight decrease in hemoglobin and hematocrit. Imaging: reviewed. CT abdomen suspected lower esophageal thickening, no imaging evidence of liver cirrhosis, ascites, splenomegaly. Impression: - Acute onset hematemesis after self-induced vomiting, in a patient with history of heavy alcohol use for many years, not following with any physician on a regular basis -- DDx-- Likely GERD with esophagitis vs MWT vs PUD vs less likely esophageal varices. Recommendations: - Patient educated about the test results, possible differential diagnoses and All questions answered. - Nothing by mouth for now. - IV PPI - prefer pantoprazole 40 MG IV twice daily. - Monitor hemoglobin and hematocrit, transfuse if needed to keep hemoglobin above 7 gm/ dL. - Will schedule for urgent EGD today. The procedure, indications, risks (bleeding, perforation, infection, hypotension, respiratory depression, allergy, need for endotracheal intubation, surgery, colostomy, cardiac arrest, even ), benefits, limitations (e.g., missing a lesion), and all other alternat marcus (including no intervention) were explained to the patient who understood and agreed for the procedure. - Can continue antibiotics and octreotide until EGD. - Follow the operative note for post procedure recommendations Addendum Post procedure: -- Patient is noted to have severe Grade C reflux esophagitis and moderate gastritis with erosions. No active bleeding and no varices. ( detailed findings on operative note). -- Will discontinue antibiotics and octreotide. -- Will switch IV PPI to oral Pantoprazole 40 mg twice daily for 3 months. Also to give sucralfate ( 3-4 times a day after meals) for atleast 4-6 weeks. -- Avoid NSIADs. -- Cessation of smoking and alcohol. -- Advance diet as tolerated. Patient is educated to follow an antireflux regimen. -- Follow pathology results and If Biopsy shows H. pylori will need therapy with antibiotic course.. -- Repeat upper endoscopy in 3 months to check healing and to evaluate the response to therapy. -- Return to GI clinic in [facility] (address [address], [address], [place], [address]) in 4 -- 6 weeks. Patient is educated to call GI clinic @ [phone] for appointment date and time. -- Elective screening Colonoscopy if patient agrees. Plan of care discussed with patient and primary team. Patient verbalized understanding and agreed with the plan. Vital Signs/I&O Vital Signs Date Time Temp Pulse Resp B/P (MAP) Pulse Ox O2 Delivery O2 Flow Rate FiO2 11/22/19 07:49 98.0 103 20 140/73 (95) 97 Room Air I&O- Last 24 Hours up to 6 AM 11/22/19 06:00 Intake Total 1730.4 ml Output Total 650 ml Balance 1080.4 ml Laboratory Data CBC/BMP Laboratory Tests 11/21/19 16:38 11/21/19 20:10 11/22/19 03:23 11/22/19 08:45 Allergies Coded Allergies: No Known Allergies (Unverified , 05/08/19) Home Medications Scheduled Buspirone HCl (Buspirone HCl) 10 Mg Tablet, 10 MG PO BID, (Reported) Pantoprazole Sodium (Protonix) 40 Mg Tablet.dr, 40 MG PO BID for 90 Days, #180 Sucralfate (Carafate) 1 Gm/10 Ml Oral.susp, 10 ML PO QID for 30 Days, #1 before food MICHELLE YING MD Nov 22, 2019 09:30
[2019-11-22] MEDS ORDERED: fentaNYL 100 MCG/2 ML INJECTION (J3010) As Ordered ONE (09:50)
[2019-11-22] MEDS ORDERED: LIDOCAINE 2% INJ 100 MG/5 ML SDV (FOR ANES.) As Ordered ONE (09:50)
[2019-11-22] MEDS ORDERED: propofoL 200 MG/20 ML VIAL As Ordered ONE ×2 (09:50→09:52)
--- NOTE | 2019-11-22 10:09 | ROOR ---
Patient Name: Jose Luis Colbert Procedure Date: 11/22/2019 9:25 AM Date of : 1960 Age: 59 Gender: Male Note Status: Finalized Procedure: Upper GI endoscopy Indications: Hematemesis Providers: Abelardo Holt MD Referring MD: Meredith Minaya Md Requesting Provider: Medicines: Monitored Anesthesia Care Complications: No immediate complications. Procedure: Pre-Anesthesia Assessment: - Prior to the procedure, a History and Physical was performed, and patient medications and allergies were reviewed. The patient is competent. The risks and benefits of the procedure and the sedation options and risks were discussed with the patient. All questions were answered and informed consent was obtained. Patient identification and proposed procedure were verified by the physician, the nurse and the anesthesiologist in the procedure room. Mental Status Examination: alert and oriented. Airway Examination: normal oropharyngeal airway and neck mobility. Respiratory Examination: clear to auscultation. CV Examination: normal. Prophylactic Antibiotics: The patient does not require prophylactic antibiotics. Prior Anticoagulants: The patient has taken no previous anticoagulant or antiplatelet agents. ASA Grade Assessment: II - A patient with mild systemic disease. After reviewing the risks and benefits, the patient was deemed in satisfactory condition to undergo the procedure. The anesthesia plan was to use monitored anesthesia care (MAC). Immediately prior to administration of medications, the patient was re-assessed for adequacy to receive sedatives. The heart rate, respiratory rate, oxygen saturations, blood pressure, adequacy of pulmonary ventilation, and response to care were monitored throughout the procedure. The physical status of the patient was re-assessed after the procedure. The Endoscope was introduced through the mouth, and advanced to the second part of duodenum. The upper GI endoscopy was accomplished without difficulty. The patient tolerated the procedure well. Findings: LA Grade C (one or more mucosal breaks continuous between tops of 2 or more mucosal folds, less than 75% circumference) esophagitis with no bleeding was found in the distal esophagus. Scattered moderate inflammation characterized by erythema, granularity and linear erosions was found in the gastric antrum. Biopsies were taken with a cold forceps for Helicobacter pylori testing. Verification of patient identification for the specimen was done by the physician and nurse using the patient's name, date and medical record number. The duodenal bulb and second portion of the duodenum were normal. Impression: - LA Grade C reflux esophagitis. - Gastritis. Biopsied. - Normal duodenal bulb and second portion of the duodenum. Recommendation: - Patient has a contact number available for emergencies. The signs and symptoms of potential delayed complications were discussed with the patient. Return to normal activities tomorrow. Written discharge instructions were provided to the patient. - Mechanical soft diet today, then advance as tolerated to Anti-acid reflux diet -- small meals, sit upright atleast 1 hour after meals, avoid fatty/ oily foods and avoid foods that cause reflux. - Continue present medications. - Use Protonix (pantoprazole) 40 mg PO BID for 3 months. - Follow an antireflux regimen. - Await pathology results. - If Biopsy shows H. pylori will need therapy with antibiotic course.. - Alcohol cessation and smoking cessation counseling. - Repeat upper endoscopy in 3 months to check healing and to evaluate the response to therapy. - Return to GI clinic in [facility] (address [address], [address], [place] [address]) in 4 -- 6 weeks. Please call GI clinic @ [phone] for apppointment date and time. - Return to primary care physician. Abelardo Holt MD Abelardo Holt MD 11/22/2019 10:09:14 AM Electronically signed by Abelardo Holt MD Number of Addenda: 0 Note Initiated On: 11/22/2019 9:25 AM Estimated Blood Loss: Estimated blood loss was minimal.
[2019-11-22] MEDS ORDERED: LR 1,000 ML IV SCH (10:15)
[2019-11-22] MEDS ORDERED: ONDANSETRON 4MG/2ML VIAL (J2405) IV PRN (10:15)
[2019-11-22 10:32] VITALS: BP 131/75
[2019-11-22] MEDS ORDERED: SUCR1SS PO (10:56)
[2019-11-22] MEDS ORDERED: PROT1TAB2 PO (10:56)
--- NOTE | 2019-11-22 11:09 | IPNPDOC ---
Subjective Date Seen The patient was seen on 11/22/19. Subjective Chief Complaint/HPI No further hematemesis, resting in bed awaiting egd. No active withdrawals Objective Physical Examination General Exam: Positive: Alert, Cooperative Eye Exam: Positive: PERRLA; Negative: Sclera icteric Neck Exam: Positive: Supple Chest Exam: Positive: Clear to auscultation Heart Exam: Positive: Rate Normal Abdomen Exam: Positive: Normal bowel sounds, Tenderness (no epigastric tenderne ss nor distension) Extremity Exam: Positive: Normal pulses; Negative: Clubbing, Cyanosis Skin Exam: Positive: Nl turgor and temperature; Negative: Rash Neuro Exam: Positive: Normal Speech Psych Exam: Positive: Mental status NL Assessment /Plan Assessment # Hematemesis due to esophagitis - ok to discharge home - protonix 40 mg bid x 3 months - carafate qid - f/u with PCP in 1 week, and GI in 4-6 weeks - Refer for outpatient alcohol counseling # Chronic alcoholism with acute alcohol intoxication - no active DTs Plan/VTE VTE Prophylaxis Ordered?: No VS, I&O, 24H, Fishbone Vital Signs/I&O Vital Signs Date Time Temp Pulse Resp B/P (MAP) Pulse Ox O2 Delivery O2 Flow Rate FiO2 11/22/19 10:32 98.7 84 18 131/75 (93) 96 Room Air I&O- Last 24 Hours up to 6 AM 11/22/19 06:00 Intake Total 1730.4 ml Output Total 650 ml Balance 1080.4 ml Laboratory Data 24H LABS Laboratory Tests 2 11/21/19 16:38: Immature Granulocyte % (Auto) 0.5, Neutrophils (%) (Auto) 75.9H, Lymphocytes (%) (Auto) 13.3L, Monocytes (%) (Auto) 8.8H, Eosinophils (%) (Auto) 0.8, Basophils (%) (Auto) 0.7, Neutrophils # (Auto) 6.7, Lymphocytes # (Auto) 1.2L, Monocytes # (Auto) 0.8, Eosinophils # (Auto) 0.1, Basophils # (Auto) 0.1, Nucleated Red Blood Cells % (auto) 0.0, Prothrombin Time 13.2, Prothromb Time International Ratio 1.03, Activated Partial Thromboplast Time 34.3, Anion Gap 11, Glomerular Filtration Rate > 60.0, Calcium Level 8.8, Total Bilirubin 0.5, Direct Bilirubin 0.1, Aspartate Amino Transf (AST/SGOT) 49H, Alanine Aminotransferase (ALT/SGPT) 42, Alkaline Phosphatase 66, Total Creatine Kinase 680H, Creatine Kinase MB 9.9H, Creatine Kinase MB Relative Index 1.46, Troponin I < 0.02, Total Protein 7.7, Albumin 4.4, Albumin/Globulin Ratio 1.33, Lipase 70L 11/21/19 20:10: Prothrombin Time 13.6, Prothromb Time International Ratio 1.07, Activated Partial Thromboplast Time 35.3, Ethyl Alcohol Level 0.123H 11/22/19 03:23: Nucleated Red Blood Cells % (auto) 0.0, Anion Gap 7L, Glomerular Filtration Rate > 60.0, Calcium Level 7.6L, Total Bilirubin 0.9#, Aspartate Amino Transf (AST/SGOT) 46H, Alanine Aminotransferase (ALT/SGPT) 40, Alkaline Phosphatase 58, Total Protein 6.4, Albumin 3.5#, Albumin/Globulin Ratio 1.21, Magnesium Level 1.9, Iron Level 156, Total Iron Binding Capacity 238L, Transferrin % Saturation 65.5H, Ferritin 217 CBC/BMP Laboratory Tests 11/21/19 16:38 11/21/19 20:10 11/22/19 03:23 11/22/19 08:45 MIROSLAVA SOMERS MD Nov 22, 2019 11:09
[2019-11-23 10:36] LABS: HEPATITIS B SURFACE ANTIBODY NEGATIVE (POSITIVE); HEPATITIS B SURFACE ANTIGEN NEGATIVE (NEGATIVE); HEPATITIS C VIRUS ABY INDEX < 0.0 INDEX (<0.8)
--- NOTE | 2019-11-25 13:59 | DSES ---
DATE OF ADMISSION: 11/21/2019 DATE OF DISCHARGE: 11/22/2019 DISCHARGE DIAGNOSES: 1. Hematemesis secondary to esophagitis. 2. Status post esophagogastroduodenoscopy (EGD). 3. Chronic alcoholism with acute alcohol intoxication. PROCEDURES PERFORMED DURING HOSPITALIZATION: EGD with biopsies. CONSULTANTS: Dr. Holt. DISPOSITION: The patient is discharged home in stable condition. Followup labs that are pending at the time of discharge are gastric and esophageal biopsies. DISCHARGE INSTRUCTIONS: The patient is instructed to take Carafate as prescribed for the next 30 days. Followup with GI in the next 4-6 weeks for a repeat EGD. He is to followup with his primary care physician. He is to abstain from drinking alcohol. CONDITION ON DISCHARGE: Improved with no further symptoms of upper gastrointestinal (GI) bleeding. RELEVANT LABS: White blood cell count 6.8, hemoglobin 12.2, hematocrit is 36.1, platelet counts are 231. INR is 1.07, PT is 13.6, PTT 35.3. Sodium 139, potassium 4.2, chloride 106, bicarbonate is 26. BUN is 15, creatinine 0.74. Glucose is 65. Calcium is 7.6. Magnesium is 1.9. Iron is 156. Ferritin is 217. AST is 46, ALT is 40, alkaline phosphatase 58. Lipase is 70. IMAGING STUDIES: CT of the abdomen and pelvis with intravenous (IV) contrast showed severe circumferential wall thickening involving the distal esophagus, gastric cardia. Please reference report for details. DISCHARGE MEDICATIONS: - Protonix 40 mg twice a day - Carafate 1 gram per 10 mL, 10 mL four times a day - buspirone 10 mg twice a day HOSPITAL COURSE: Mr. Colbert is a 59-year-old gentleman with history of chronic alcoholism presented to the hospital after experiencing some hematemesis. He was found to have a normal hemoglobin upon admission. He was admitted to the hospitalist service. He was placed on IV Protonix and initially kept nothing by mouth. GI was consulted. The patient was taken for an EGD. He was found to have ulcerative esophagitis. Please reference the operative note for details. Recommendations were made. Postprocedure, the patient was doing well and was discharged home in stable condition. Total of 30 minutes was spent completing all discharge paperwork.
== END 2019-11-22 12:18 | disposition home or self-care (01) | DRG 243 ==
LOC: EDBD 16:13 → M ED 16:13 → M ED INP 19:46 → ENRESERVTM 20:18 → ENRESERVDT 20:18 → M PCU 21:08
PROVIDERS: ADMIT Internal Medicine; ATTEND Internal Medicine
PROC: 0DB78ZX Excision of Stomach, Pylorus, Via Natural or Artificial Opening Endoscopic, Diagnostic (ICD-10-PCS; principal; 2019-11-22 09:00)
DX: K20.9 Esophagitis, unspecified (principal); K29.20 Alcoholic gastritis without bleeding; K92.0 Hematemesis; D62 Acute posthemorrhagic anemia; K27.9 Peptic ulcer, site unspecified, unspecified as acute or chronic, without hemorrhage or perforation; K21.0 Gastro-esophageal reflux disease with esophagitis; F10.129 Alcohol abuse with intoxication, unspecified; F41.9 Anxiety disorder, unspecified; Z87.81 Personal history of (healed) traumatic fracture; F17.200 Nicotine dependence, unspecified, uncomplicated; Z79.899 Other long term (current) drug therapy

== ENCOUNTER 2020-02-05 11:52 | Emergency (ER) | payer OTHER ==
[~2020-02-05] VITALS: Ht 167.6 cm; Wt 66.1 kg
[~2020-02-05 11:52] MED LIST changes: +BUSP10TA PO; +PROT1TAB2 PO; +SUCR1SS PO
[2020-02-05] MEDS ORDERED: HYDR1CAP25 PO (11:59)
[2020-02-05] MEDS ORDERED: OXAZEPAM 15 MG CAP PO ONE (12:15)
[2020-02-05] MEDS ORDERED: NS 1,000 ML IV ONE (12:30)
[2020-02-05] MEDS ORDERED: LORazepam 2 MG TAB PO PRN (12:30)
[2020-02-05 12:34] LABS: HEMATOCRIT 38.8 % (42.0-52.0); HEMOGLOBIN 13.6 g/dl (13.5-17.5); MEAN CORPUSCULAR HEMOGLOBIN 33.3 pg (27.0-33.0); MEAN CORPUSCULAR HGB CONC 35.1 g/dl (32.0-36.5); MEAN CORPUSCULAR VOLUME 95.1 fl (80.0-96.0); PLATELET COUNT, AUTOMATED 192 10^3/uL (150-450); RED BLOOD COUNT 4.08 10^6/uL (4.30-6.10); WHITE BLOOD COUNT 6.5 10^3/uL (4.0-10.0)
[2020-02-05 12:44] LABS: INR 1.02; PROTHROMBIN TIME 13.1 SECONDS (11.8-14.0)
[2020-02-05 13:08] LABS: ALBUMIN 4.1 GM/DL (3.2-5.2); ALT/SGPT 52 U/L (12-78); BILIRUBIN,DIRECT 0.2 MG/DL (0.0-0.2); BILIRUBIN,TOTAL 0.8 MG/DL (0.2-1.0); BLOOD UREA NITROGEN 13 MG/DL (7-18); CALCIUM LEVEL 8.4 MG/DL (8.8-10.2); CARBON DIOXIDE LEVEL 26 MEQ/L (21-32); CHLORIDE LEVEL 105 MEQ/L (98-107); CREATININE FOR GFR 0.65 MG/DL (0.70-1.30); ETHYL ALCOHOL (ETHANOL) 0.105 % (0.000-0.010); GLOMERULAR FILTRATION RATE > 60.0 (>49); GLUCOSE, FASTING 80 MG/DL (70-100); POTASSIUM SERUM 4.1 MEQ/L (3.5-5.1); SODIUM LEVEL 139 MEQ/L (136-145); TOTAL PROTEIN 7.4 GM/DL (6.4-8.2)
[2020-02-05 13:45] VITALS: BP 147/87
== END 2020-02-05 14:13 | disposition home or self-care (01) ==
LOC: M ED 11:52
DX: F10.10 Alcohol abuse, uncomplicated (principal); F41.9 Anxiety disorder, unspecified
CPT/HCPCS: 80048; 80076; 85027; 85610; 96360; 96361; 99284; G0480

== ENCOUNTER 2020-02-11 22:35 | Emergency (ER) | payer OTHER ==
[~2020-02-11 22:35] MED LIST changes: +HYDR1CAP25 PO
[2020-02-11] MEDS ORDERED: NS 1,000 ML IV ONE (23:30)
[2020-02-11] MEDS ORDERED: METOCLOPRAMIDE INJ 10MG/2ML VIAL (J2765 PER 1) IV ONE (23:30)
[2020-02-11 23:31] LABS: BASO % 0.6 % (0.0-1.0); EOS # 0.1 10^3/uL (0.0-0.5); EOS % 1.2 % (0.0-3.0); HEMATOCRIT 37.7 % (42.0-52.0); HEMOGLOBIN 12.8 g/dl (13.5-17.5); LYMPH % 27.3 % (24.0-44.0); MEAN CORPUSCULAR HEMOGLOBIN 32.4 pg (27.0-33.0); MEAN CORPUSCULAR VOLUME 95.4 fl (80.0-96.0); MONO # 0.6 10^3/uL (0.0-0.8); MONO % 8.2 % (0.0-5.0); NEUTROPHILS # 4.5 10^3/uL (1.5-8.5); NEUTROPHILS % 62.1 % (36.0-66.0); PLATELET COUNT, AUTOMATED 272 10^3/uL (150-450); RED BLOOD COUNT 3.95 10^6/uL (4.30-6.10); WHITE BLOOD COUNT 7.2 10^3/uL (4.0-10.0)
[2020-02-12 00:31] LABS: ALBUMIN 4.1 GM/DL (3.2-5.2); ALT/SGPT 73 U/L (12-78); BILIRUBIN,DIRECT < 0.1 MG/DL (0.0-0.2); BILIRUBIN,TOTAL 0.3 MG/DL (0.2-1.0); BLOOD UREA NITROGEN 9 MG/DL (7-18); CALCIUM LEVEL 8.1 MG/DL (8.8-10.2); CARBON DIOXIDE LEVEL 25 MEQ/L (21-32); CHLORIDE LEVEL 106 MEQ/L (98-107); CREATININE FOR GFR 0.64 MG/DL (0.70-1.30); ETHYL ALCOHOL (ETHANOL) 0.283 % (0.000-0.010); GLOMERULAR FILTRATION RATE > 60.0 (>49); GLUCOSE, FASTING 97 MG/DL (70-100); LIPASE 85 U/L (73-393); POTASSIUM SERUM 4.2 MEQ/L (3.5-5.1); SODIUM LEVEL 140 MEQ/L (136-145); TOTAL PROTEIN 7.6 GM/DL (6.4-8.2)
[2020-02-12 01:21] VITALS: BP 125/86
== END 2020-02-12 01:27 | disposition home or self-care (01) ==
LOC: M ED 22:35
DX: F10.10 Alcohol abuse, uncomplicated (principal)
CPT/HCPCS: 80048; 80076; 83690; 85025; 96361; 96374; 99284; G0480; J2765

== ENCOUNTER 2020-02-20 16:49 | Emergency (ER) | payer OTHER ==
[~2020-02-20] VITALS: Ht 167.6 cm; Wt 67.1 kg
[2020-02-20] MEDS ORDERED: NS 1,000 ML IV ONE (17:00)
[2020-02-20 17:18] LABS: HEMATOCRIT 39.5 % (42.0-52.0); HEMOGLOBIN 13.2 g/dl (13.5-17.5); MEAN CORPUSCULAR HEMOGLOBIN 32.5 pg (27.0-33.0); MEAN CORPUSCULAR HGB CONC 33.4 g/dl (32.0-36.5); MEAN CORPUSCULAR VOLUME 97.3 fl (80.0-96.0); PLATELET COUNT, AUTOMATED 288 10^3/uL (150-450); RED BLOOD COUNT 4.06 10^6/uL (4.30-6.10); WHITE BLOOD COUNT 4.5 10^3/uL (4.0-10.0)
--- NOTE | 2020-02-20 17:23 | REPVR ---
PROCEDURE INFORMATION: Exam: CT Head Without Contrast Exam date and time: 02/20/2020 5:12 PM Age: 59 years old Clinical indication: Injury or trauma; Fall; Initial encounter; Blunt trauma (contusions or hematomas) TECHNIQUE: Imaging protocol: Computed tomography of the head without contrast. Radiation optimization: All CT scans at this facility use at least one of these dose optimization techniques: automated exposure control; mA and/or kV adjustment per patient size (includes targeted exams where dose is matched to clinical indication); or iterative reconstruction. COMPARISON: CT Head without contrast 05/29/2019 12:21 AM FINDINGS: Brain: No intracranial hemorrhage or extra-axial fluid collection. No evidence of mass effect or midline shift. Lutz-white matter differentiation is intact. Ventricles: No ventriculomegaly. Bones/joints: No acute osseus lesion or fracture. Sinuses: Unremarkable as visualized. Mastoid air cells: Unremarkable. Soft tissues: Unremarkable. IMPRESSION: No acute intracranial pathology. Electronically signed by: Richard Allred On 02/20/2020 17:23:36 PM
--- NOTE | 2020-02-20 17:25 | REPVR ---
PROCEDURE INFORMATION: Exam: CT Cervical Spine Without Contrast Exam date and time: 02/20/2020 5:12 PM Age: 59 years old Clinical indication: Injury or trauma; Fall; Initial encounter; Blunt trauma TECHNIQUE: Imaging protocol: Computed tomography images of the cervical spine without contrast. Radiation optimization: All CT scans at this facility use at least one of these dose optimization techniques: automated exposure control; mA and/or kV adjustment per patient size (includes targeted exams where dose is matched to clinical indication); or iterative reconstruction. COMPARISON: CT Spine,cervical w/o contrast 05/29/2019 12:21 AM FINDINGS: Vertebrae: Straightening of the cervical lordosis. Vertebral body heights are maintained. No locked or perched facets. Multilevel facet arthropathy. No acute cervical spine fracture. The dens is intact. Atlanto-axial intervals are normal. Discs/Spinal canal/Neural foramina: Multilevel degenerative changes with intervertebral disc height loss and osteophyte formation, with multilevel areas of mild canal stenosis. Soft tissues: Unremarkable. Lungs: Lung apices are clear. IMPRESSION: No acute cervical spine fracture. Electronically signed by: Richard Allred On 02/20/2020 17:24:34 PM
[2020-02-20 17:29] LABS: INR 1.03; PROTHROMBIN TIME 13.2 SECONDS (11.8-14.0)
[2020-02-20 17:34] LABS: ATYPICAL LYMPH 1 % (0-5); EOSINOPHILS 2 % (0-3); LYMPHOCYTES 56 % (16-44); MONOCYTES 3 % (0-5); NEUTROPHILS 38 % (28-66); PLATELET ESTIMATE NORMAL (NORMAL)
[2020-02-20 17:49] LABS: ALBUMIN 4.2 GM/DL (3.2-5.2); ALT/SGPT 55 U/L (12-78); BILIRUBIN,DIRECT 0.1 MG/DL (0.0-0.2); BILIRUBIN,TOTAL 0.2 MG/DL (0.2-1.0); BLOOD UREA NITROGEN 5 MG/DL (7-18); CALCIUM LEVEL 8.1 MG/DL (8.8-10.2); CARBON DIOXIDE LEVEL 25 MEQ/L (21-32); CHLORIDE LEVEL 109 MEQ/L (98-107); CK-MB VALUE MASS 2.1 NG/ML (<3.6); CPK CREATINE PHOSPHOKINASE 145 U/L (39-308); CREATININE FOR GFR 0.68 MG/DL (0.70-1.30); ETHYL ALCOHOL (ETHANOL) 0.383 % (0.000-0.010); GLOMERULAR FILTRATION RATE > 60.0 (>49); GLUCOSE, FASTING 88 MG/DL (70-100); MB/CK RELATIVE INDEX 1.45 (< OR =4); SODIUM LEVEL 143 MEQ/L (136-145); TOTAL PROTEIN 7.9 GM/DL (6.4-8.2); TROPONIN I < 0.02 NG/ML (< 0.10)
[2020-02-20 21:15] VITALS: BP 96/58
--- NOTE | 2020-02-21 09:24 | REP ---
CHEST: Single view. There is no evidence of acute infiltrate. No pleural effusion is seen. The heart is normal in size. The mediastinal silhouette is unremarkable. The visualized osseous structures are intact. IMPRESSION: No acute pulmonary disease. Electronically Signed by Elian Lutz MD 02/21/2020 10:23 A
--- NOTE | 2020-02-21 19:48 | ECGEPIP ---
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
== END 2020-02-20 21:24 | disposition home or self-care (01) ==
LOC: EDBD 16:49 → M ED 16:49
DX: F10.129 Alcohol abuse with intoxication, unspecified (principal); Y90.1 Blood alcohol level of 20-39 mg/100 ml; S00.01XA Abrasion of scalp, initial encounter; W10.8XXA Fall (on) (from) other stairs and steps, initial encounter; Y92.018 Other place in single-family (private) house as the place of occurrence of the external cause; Z79.82 Long term (current) use of aspirin
CPT/HCPCS: 70450; 71045; 72125; 80048; 80076; 82550; 82553; 85025; 85610; 85730; 86850; 86900; 86901; 93005; 93041; 94760; 96360; 99285; G0480

== ENCOUNTER 2020-02-24 19:31 | Emergency (ER) | payer OTHER ==
[~2020-02-24] VITALS: Ht 167.6 cm; Wt 64.6 kg
[2020-02-24 19:41] VITALS: BP 127/86
[2020-02-24 20:01] LABS: HEMATOCRIT 38.5 % (42.0-52.0); HEMOGLOBIN 13.1 g/dl (13.5-17.5); MEAN CORPUSCULAR HEMOGLOBIN 32.4 pg (27.0-33.0); MEAN CORPUSCULAR VOLUME 95.3 fl (80.0-96.0); PLATELET COUNT, AUTOMATED 247 10^3/uL (150-450); RED BLOOD COUNT 4.04 10^6/uL (4.30-6.10); WHITE BLOOD COUNT 4.8 10^3/uL (4.0-10.0)
--- NOTE | 2020-02-24 20:37 | REPVR ---
PROCEDURE INFORMATION: Exam: CT Head Without Contrast Exam date and time: 02/24/2020 8:26 PM Age: 59 years old Clinical indication: Injury or trauma; Fall; Initial encounter; Blunt trauma (contusions or hematomas) TECHNIQUE: Imaging protocol: Computed tomography of the head without contrast. Radiation optimization: All CT scans at this facility use at least one of these dose optimization techniques: automated exposure control; mA and/or kV adjustment per patient size (includes targeted exams where dose is matched to clinical indication); or iterative reconstruction. COMPARISON: CT Head without contrast 02/20/2020 4:58 PM FINDINGS: Brain: Normal. No hemorrhage. Unremarkable white matter. No mass effect. Ventricles: Normal. No ventriculomegaly. Bones/joints: Unremarkable. No acute fracture. Sinuses: Visualized sinuses are unremarkable. No fluid levels. Mastoid air cells: Visualized mastoid air cells are well aerated. Soft tissues: Unremarkable. IMPRESSION: No acute intracranial abnormality. Electronically signed by: Stefan Wilhelm On 02/24/2020 20:37:02 PM
[2020-02-24 20:39] LABS: BLOOD UREA NITROGEN 5 MG/DL (7-18); CALCIUM LEVEL 8.2 MG/DL (8.8-10.2); CARBON DIOXIDE LEVEL 24 MEQ/L (21-32); CHLORIDE LEVEL 104 MEQ/L (98-107); ETHYL ALCOHOL (ETHANOL) 0.424 % (0.000-0.010); GLOMERULAR FILTRATION RATE > 60.0 (>49); GLUCOSE, FASTING 94 MG/DL (70-100); POTASSIUM SERUM 3.8 MEQ/L (3.5-5.1); SODIUM LEVEL 139 MEQ/L (136-145)
[2020-02-24 20:40] LABS: ATYPICAL LYMPH 10 % (0-5); EOSINOPHILS 2 % (0-3); LYMPHOCYTES 43 % (16-44); MONOCYTES 11 % (0-5); NEUTROPHILS 34 % (28-66); PLATELET ESTIMATE NORMAL (NORMAL)
--- NOTE | 2020-02-24 20:44 | REPVR ---
PROCEDURE INFORMATION: Exam: CT Cervical Spine Without Contrast Exam date and time: 02/24/2020 8:26 PM Age: 59 years old Clinical indication: Injury or trauma; Fall; Initial encounter; Blunt trauma TECHNIQUE: Imaging protocol: Computed tomography images of the cervical spine without contrast. Radiation optimization: All CT scans at this facility use at least one of these dose optimization techniques: automated exposure control; mA and/or kV adjustment per patient size (includes targeted exams where dose is matched to clinical indication); or iterative reconstruction. COMPARISON: CT Spine,cervical w/o contrast 02/20/2020 4:58 PM FINDINGS: Vertebrae: Straightening of the cervical spine. Soft tissues: Unremarkable. Lungs: Lung apices are normal. Other findings: Multilevel degenerative disc disease. There is multilevel uncovertebral and facet hypertrophy with neural foramina narrowing. IMPRESSION: No acute abnormality. Straightening of the cervical spine. Ligamentous/muscular strain. Multilevel uncovertebral and facet hypertrophy with neural foraminal narrowing. Electronically signed by: Stefan Wilhelm On 02/24/2020 20:44:30 PM
== END 2020-02-25 01:02 | disposition home or self-care (01) ==
LOC: M ED 19:31
DX: F10.129 Alcohol abuse with intoxication, unspecified (principal); F41.9 Anxiety disorder, unspecified; F17.200 Nicotine dependence, unspecified, uncomplicated; Z79.82 Long term (current) use of aspirin
CPT/HCPCS: 70450; 72125; 80048; 85025; 99284; G0480

== ENCOUNTER 2020-03-06 13:44 | Emergency (ER) | payer OTHER ==
[~2020-03-06] VITALS: Ht 167.6 cm; Wt 66.5 kg
[2020-03-06] MEDS ORDERED: LORazepam 2 MG TAB PO PRN (14:15)
[2020-03-06] MEDS ORDERED: MULTIVITAMIN -ADULT INJECTION 10 ML, THIAMINE INJection 100 MG, FOLIC ACID 1 MG in NS 1... IV ONE (14:15)
[2020-03-06 14:41] LABS: EOS # 0.2 10^3/uL (0.0-0.5); EOS % 3.6 % (0.0-3.0); HEMATOCRIT 36.1 % (42.0-52.0); HEMOGLOBIN 12.4 g/dl (13.5-17.5); LYMPH # 1.6 10^3/uL (1.5-5.0); LYMPH % 38.8 % (24.0-44.0); MEAN CORPUSCULAR HEMOGLOBIN 33.1 pg (27.0-33.0); MEAN CORPUSCULAR HGB CONC 34.3 g/dl (32.0-36.5); MEAN CORPUSCULAR VOLUME 96.3 fl (80.0-96.0); MONO # 0.7 10^3/uL (0.0-0.8); MONO % 15.8 % (0.0-5.0); NEUTROPHILS # 1.7 10^3/uL (1.5-8.5); NEUTROPHILS % 40.6 % (36.0-66.0); PLATELET COUNT, AUTOMATED 172 10^3/uL (150-450); RED BLOOD COUNT 3.75 10^6/uL (4.30-6.10); WHITE BLOOD COUNT 4.2 10^3/uL (4.0-10.0)
[2020-03-06 15:05] LABS: INR 1.07; PROTHROMBIN TIME 13.6 SECONDS (11.8-14.0)
[2020-03-06 15:06] LABS: PARTIAL THROMBOPLASTIN TIME 40.2 SECONDS (25.0-38.4)
[2020-03-06 15:15] LABS: ALBUMIN 3.7 GM/DL (3.2-5.2); ALT/SGPT 137 U/L (12-78); BILIRUBIN,DIRECT 0.2 MG/DL (0.0-0.2); BILIRUBIN,TOTAL 0.4 MG/DL (0.2-1.0); BLOOD UREA NITROGEN 7 MG/DL (7-18); CALCIUM LEVEL 8.3 MG/DL (8.8-10.2); CARBON DIOXIDE LEVEL 26 MEQ/L (21-32); CHLORIDE LEVEL 105 MEQ/L (98-107); CK-MB VALUE MASS 3.7 NG/ML (<3.6); CPK CREATINE PHOSPHOKINASE 400 U/L (39-308); CREATININE FOR GFR 0.58 MG/DL (0.70-1.30); ETHYL ALCOHOL (ETHANOL) 0.358 % (0.000-0.010); GLOMERULAR FILTRATION RATE > 60.0 (>49); GLUCOSE, FASTING 83 MG/DL (70-100); LIPASE 135 U/L (73-393); MAGNESIUM LEVEL 2.2 MG/DL (1.8-2.4); MB/CK RELATIVE INDEX 0.92 (< OR =4); NT-PRO BNP 14 PG/ML (<125); POTASSIUM SERUM 3.8 MEQ/L (3.5-5.1); SODIUM LEVEL 138 MEQ/L (136-145); THYROID STIMULATING HORMONE 0.621 uIU/ML (0.358-3.740); TOTAL PROTEIN 6.8 GM/DL (6.4-8.2); TROPONIN I < 0.02 NG/ML (< 0.10)
[2020-03-06] MEDS ORDERED: LORazepam 2 MG/ML VIAL IV STA (15:24)
[2020-03-06] MEDS ORDERED: LORazepam 2 MG/ML VIAL As Ordered ONE (15:29)
--- NOTE | 2020-03-06 16:13 | ECGEPIP ---
[facility] - ED Test Date: 2020-03-06 Pat Name: KELLY MON Department: Room: - Gender: Male Simonizer: Jsobia : 1960 Requested By: EDWADR LIMA Order Number: [id number] Reading MD: Alexandra Bailon Measurements Intervals [place] Rate: 94 P: 81 ME: 136 QRS: 68 QRSD: 90 T: 71 QT: 340 QTc: 425 Interpretive Statements SINUS RHYTHM SEPTAL MYOCARDIAL INFARCTION, PROBABLY OLD NSTTW abnormalities INCREASED RATE 02/20/20 Electronically Signed on 03-06-2020 16:13:03 EDT by Alexandra Bailon
[2020-03-06 16:15] VITALS: BP 134/88
[2020-03-06] MEDS ORDERED: OXAZEPAM 10 MG CAP PO ONE (19:15)
[2020-03-06] MEDS ORDERED: OXAZ15CA4 PO (20:34)
== END 2020-03-06 20:59 | disposition home or self-care (01) ==
LOC: M ED 13:44
DX: F10.129 Alcohol abuse with intoxication, unspecified (principal); Y90.1 Blood alcohol level of 20-39 mg/100 ml; E78.5 Hyperlipidemia, unspecified; Z79.899 Other long term (current) drug therapy; Z79.82 Long term (current) use of aspirin
CPT/HCPCS: 80048; 80076; 82550; 82553; 83690; 83735; 83880; 84443; 85025; 85610; 85730; 93005; 93041; 94760; 96365; 96375; 99285; G0480; J2060; J3411

== ENCOUNTER 2020-03-14 20:07 | Emergency (ER) | payer OTHER ==
[~2020-03-14] VITALS: Ht 167.6 cm; Wt 63.6 kg
[~2020-03-14 20:07] MED LIST changes: +OXAZ15CA4 PO
[2020-03-14] MEDS ORDERED: ASPI-264 PO (20:15)
[2020-03-14] MEDS ORDERED: NS 1,000 ML IV SCH (20:46)
[2020-03-14 20:54] LABS: BASO # 0.1 10^3/uL (0.0-0.2); BASO % 0.9 % (0.0-1.0); EOS # 0.2 10^3/uL (0.0-0.5); HEMATOCRIT 36.3 % (42.0-52.0); HEMOGLOBIN 12.6 g/dl (13.5-17.5); LYMPH % 32.1 % (24.0-44.0); MEAN CORPUSCULAR HEMOGLOBIN 33.7 pg (27.0-33.0); MEAN CORPUSCULAR HGB CONC 34.7 g/dl (32.0-36.5); MEAN CORPUSCULAR VOLUME 97.1 fl (80.0-96.0); MONO # 0.8 10^3/uL (0.0-0.8); MONO % 13.3 % (0.0-5.0); NEUTROPHILS # 3.2 10^3/uL (1.5-8.5); NEUTROPHILS % 50.4 % (36.0-66.0); PLATELET COUNT, AUTOMATED 208 10^3/uL (150-450); RED BLOOD COUNT 3.74 10^6/uL (4.30-6.10); WHITE BLOOD COUNT 6.3 10^3/uL (4.0-10.0)
[2020-03-14 21:16] LABS: BLOOD UREA NITROGEN 12 MG/DL (7-18); CALCIUM LEVEL 8.1 MG/DL (8.8-10.2); CARBON DIOXIDE LEVEL 25 MEQ/L (21-32); CHLORIDE LEVEL 110 MEQ/L (98-107); CREATININE FOR GFR 0.66 MG/DL (0.70-1.30); ETHYL ALCOHOL (ETHANOL) 0.414 % (0.000-0.010); GLOMERULAR FILTRATION RATE > 60.0 (>49); GLUCOSE, FASTING 81 MG/DL (70-100); POTASSIUM SERUM 3.9 MEQ/L (3.5-5.1); SODIUM LEVEL 144 MEQ/L (136-145)
[2020-03-15 00:19] VITALS: BP 118/76
[2020-04-02] MEDS ORDERED: [UNRECOGNIZED DRUG - OTHER] MT (20:24)
== END 2020-03-15 01:25 | disposition home or self-care (01) ==
LOC: M ED 20:07
DX: F10.129 Alcohol abuse with intoxication, unspecified (principal); Y90.2 Blood alcohol level of 40-59 mg/100 ml; F41.9 Anxiety disorder, unspecified; Z79.82 Long term (current) use of aspirin
CPT/HCPCS: 80048; 85025; 96360; 96361; 99284; G0480

== ENCOUNTER 2020-03-15 13:59 | Emergency (ER) | payer OTHER ==
[~2020-03-15 13:59] MED LIST changes: +ASPI-264 PO
== END 2020-03-15 14:52 | disposition left against medical advice (07) ==
LOC: EDBD 13:59 → M ED 13:59
DX: Z53.21 Procedure and treatment not carried out due to patient leaving prior to being seen by health care provider (principal)

== ENCOUNTER 2020-03-23 23:58 | Emergency (ER) | payer OTHER ==
[~2020-03-23] VITALS: Ht 167.6 cm; Wt 63.6 kg
[2020-03-24 01:26] LABS: HEMATOCRIT 37.1 % (42.0-52.0); HEMOGLOBIN 12.6 g/dl (13.5-17.5); MEAN CORPUSCULAR HEMOGLOBIN 33.7 pg (27.0-33.0); MEAN CORPUSCULAR VOLUME 99.2 fl (80.0-96.0); PLATELET COUNT, AUTOMATED 260 10^3/uL (150-450); RED BLOOD COUNT 3.74 10^6/uL (4.30-6.10); WHITE BLOOD COUNT 3.9 10^3/uL (4.0-10.0)
[2020-03-24 02:31] LABS: ACETAMINOPHEN LEVEL < 2.0 UG/ML (10.0-30.0); ALBUMIN 4.1 GM/DL (3.2-5.2); ALT/SGPT 70 U/L (12-78); BILIRUBIN,DIRECT 0.1 MG/DL (0.0-0.2); BILIRUBIN,TOTAL 0.2 MG/DL (0.2-1.0); BLOOD UREA NITROGEN 5 MG/DL (7-18); CARBON DIOXIDE LEVEL 27 MEQ/L (21-32); CHLORIDE LEVEL 107 MEQ/L (98-107); CREATININE FOR GFR 0.64 MG/DL (0.70-1.30); ETHYL ALCOHOL (ETHANOL) 0.302 % (0.000-0.010); GLOMERULAR FILTRATION RATE > 60.0 (>49); GLUCOSE, FASTING 92 MG/DL (70-100); POTASSIUM SERUM 3.6 MEQ/L (3.5-5.1); SALICYLATE LEVEL 1.9 MG/DL (5.0-30.0); SODIUM LEVEL 139 MEQ/L (136-145); THYROID STIMULATING HORMONE 0.835 uIU/ML (0.358-3.740); TOTAL PROTEIN 7.2 GM/DL (6.4-8.2)
[2020-03-24] MEDS ORDERED: LORazepam 2 MG TAB PO PRN (03:00)
[2020-03-24 03:18] LABS: AMPHETAMINES LEVEL URINE NEGATIVE (NEGATIVE); BARBITURATES URINE NEGATIVE (NEGATIVE); BENZODIAZEPINES URINE NEGATIVE (NEGATIVE); CANNABINOIDS URINE NEGATIVE (NEGATIVE); COCAINE METABOLITE URINE NEGATIVE (NEGATIVE); METHADONE URINE NEGATIVE (NEGATIVE); OPIATES URINE NEGATIVE (NEGATIVE); PHENCYCLIDINE URINE NEGATIVE (NEGATIVE)
[2020-03-24] MEDS: THIAMINE 100 MG TAB PO SCH ×2 (03:22→09:40)
[2020-03-24] MEDS ORDERED: FOLIC ACID 1 MG TAB PO SCH (09:00)
[2020-03-24] MEDS ORDERED: MULTIVITAMINS/MINERALS THERAP 1 TAB PO SCH (09:00)
[2020-03-24 14:12] VITALS: BP 144/85
[2020-03-24] MEDS ORDERED: OXAZEPAM 15 MG CAP PO ONE (14:15)
[2020-03-24] MEDS ORDERED: OXAZ30CA2 PO (14:19)
== END 2020-03-24 14:31 | disposition home or self-care (01) ==
LOC: M ED 23:58
DX: F10.129 Alcohol abuse with intoxication, unspecified (principal)
CPT/HCPCS: 80048; 80076; 80307; 84443; 85027; 99284; G0480

== ENCOUNTER 2020-04-02 20:15 | Emergency (ER) | payer OTHER ==
[~2020-04-02] VITALS: Ht 167.6 cm; Wt 63.6 kg
[~2020-04-02 20:15] MED LIST changes: +OXAZ30CA2 PO
[2020-04-02] MEDS ORDERED: [UNRECOGNIZED DRUG - CODE] MT (20:24)
[2020-04-02 20:45] VITALS: BP 132/89
[2020-04-02] MEDS ORDERED: PHEN60TA9 PO (20:57)
== END 2020-04-02 21:07 | disposition home or self-care (01) ==
LOC: M ED 20:15
DX: F10.229 Alcohol dependence with intoxication, unspecified (principal); F17.200 Nicotine dependence, unspecified, uncomplicated; Z79.82 Long term (current) use of aspirin; Z79.899 Other long term (current) drug therapy

== ENCOUNTER 2020-04-05 09:02 | Emergency (ER) | payer OTHER ==
[~2020-04-05] VITALS: Ht 167.6 cm; Wt 64.7 kg
[~2020-04-05 09:02] MED LIST changes: +PHEN60TA9 PO; +[UNRECOGNIZED DRUG - CODE] MT
[2020-04-05] MEDS ORDERED: LORazepam 2 MG TAB PO PRN (09:30)
[2020-04-05] MEDS ORDERED: THIAMINE 100 MG TAB PO ONE (10:00)
[2020-04-05] MEDS ORDERED: MULTIVITAMINS/MINERALS THERAP 1 TAB PO ONE (10:00)
[2020-04-05] MEDS ORDERED: FOLIC ACID 1 MG TAB PO ONE (10:00)
[2020-04-05 10:02] LABS: HEMATOCRIT 37.9 % (42.0-52.0); HEMOGLOBIN 12.9 g/dl (13.5-17.5); MEAN CORPUSCULAR HEMOGLOBIN 33.2 pg (27.0-33.0); MEAN CORPUSCULAR VOLUME 97.4 fl (80.0-96.0); PLATELET COUNT, AUTOMATED 202 10^3/uL (150-450); RED BLOOD COUNT 3.89 10^6/uL (4.30-6.10); WHITE BLOOD COUNT 3.8 10^3/uL (4.0-10.0)
[2020-04-05 10:16] LABS: INR 1.05; PROTHROMBIN TIME 13.4 SECONDS (11.8-14.0)
[2020-04-05 10:38] LABS: ALBUMIN 3.9 GM/DL (3.2-5.2); ALT/SGPT 85 U/L (12-78); BILIRUBIN,TOTAL 0.2 MG/DL (0.2-1.0); BLOOD UREA NITROGEN 5 MG/DL (7-18); CARBON DIOXIDE LEVEL 25 MEQ/L (21-32); CHLORIDE LEVEL 105 MEQ/L (98-107); CREATININE FOR GFR 0.52 MG/DL (0.70-1.30); ETHYL ALCOHOL (ETHANOL) 0.226 % (0.000-0.010); GLOMERULAR FILTRATION RATE > 60.0 (>49); GLUCOSE, FASTING 88 MG/DL (70-100); POTASSIUM SERUM 3.7 MEQ/L (3.5-5.1); SODIUM LEVEL 140 MEQ/L (136-145); TOTAL PROTEIN 6.8 GM/DL (6.4-8.2)
[2020-04-05] MEDS ORDERED: OXAZEPAM 15 MG CAP PO ONE (10:45)
[2020-04-05 12:30] VITALS: BP 155/68
[2020-04-05] MEDS ORDERED: THIAMINE 100 MG TAB PO SCH (21:00)
[2020-04-06] MEDS ORDERED: FOLIC ACID 1 MG TAB PO SCH (09:00)
[2020-04-06] MEDS ORDERED: MULTIVITAMINS/MINERALS THERAP 1 TAB PO SCH (09:00)
== END 2020-04-05 12:30 | disposition home or self-care (01) ==
LOC: M ED 09:02
DX: F10.10 Alcohol abuse, uncomplicated (principal); F17.200 Nicotine dependence, unspecified, uncomplicated; K21.9 Gastro-esophageal reflux disease without esophagitis; E78.9 Disorder of lipoprotein metabolism, unspecified
CPT/HCPCS: 36415; 80053; 85027; 85610; 99283; G0480

== ENCOUNTER 2020-12-15 11:17 | Emergency (ER) | payer OTHER ==
[~2020-12-15] VITALS: Ht 167.6 cm; Wt 68.4 kg
[2020-12-15 12:30] VITALS: BP 154/93
[2020-12-15] MEDS ORDERED: OXAZEPAM 10 MG CAP PO ONE (12:30)
[2020-12-15 12:40] LABS: BASO % 0.6 % (0.0-1.0); EOS % 0.8 % (0.0-3.0); HEMATOCRIT 41.1 % (42.0-52.0); HEMOGLOBIN 13.9 g/dl (13.5-17.5); LYMPH # 0.8 10^3/uL (1.5-5.0); LYMPH % 15.9 % (24.0-44.0); MEAN CORPUSCULAR HEMOGLOBIN 32.9 pg (27.0-33.0); MEAN CORPUSCULAR HGB CONC 33.8 g/dl (32.0-36.5); MEAN CORPUSCULAR VOLUME 97.2 fl (80.0-96.0); MONO # 0.4 10^3/uL (0.0-0.8); MONO % 9.3 % (2.0-8.0); NEUTROPHILS # 3.4 10^3/uL (1.5-8.5); PLATELET COUNT, AUTOMATED 244 10^3/uL (150-450); RED BLOOD COUNT 4.23 10^6/uL (4.30-6.10); WHITE BLOOD COUNT 4.7 10^3/uL (4.0-10.0)
[2020-12-15] MEDS ORDERED: OXAZ10CA3 PO (12:52)
[2020-12-15 13:05] LABS: ALBUMIN 3.8 GM/DL (3.2-5.2); ALT/SGPT 78 U/L (12-78); BILIRUBIN,TOTAL 0.3 MG/DL (0.2-1.0); BLOOD UREA NITROGEN 8 MG/DL (7-18); CALCIUM LEVEL 8.5 MG/DL (8.8-10.2); CARBON DIOXIDE LEVEL 28 MEQ/L (21-32); CHLORIDE LEVEL 109 MEQ/L (98-107); CREATININE FOR GFR 0.66 MG/DL (0.70-1.30); ETHYL ALCOHOL (ETHANOL) 0.102 % (0.000-0.010); GLOMERULAR FILTRATION RATE > 60.0 (>49); GLUCOSE, FASTING 96 MG/DL (70-100); POTASSIUM SERUM 3.8 MEQ/L (3.5-5.1); SODIUM LEVEL 144 MEQ/L (136-145); TOTAL PROTEIN 6.7 GM/DL (6.4-8.2)
== END 2020-12-15 13:13 | disposition home or self-care (01) ==
LOC: M ED 11:17
DX: F10.230 Alcohol dependence with withdrawal, uncomplicated (principal); E78.5 Hyperlipidemia, unspecified; F41.9 Anxiety disorder, unspecified; Z79.82 Long term (current) use of aspirin; F17.210 Nicotine dependence, cigarettes, uncomplicated

== ENCOUNTER 2020-12-28 13:57 | Emergency (ER) | payer OTHER ==
[~2020-12-28] VITALS: Ht 167.6 cm; Wt 63.6 kg
[~2020-12-28 13:57] MED LIST changes: +OXAZ10CA3 PO
[2020-12-28] MEDS ORDERED: BUSP10TA PO (14:27)
[2020-12-28] MEDS ORDERED: LORazepam 2 MG TAB PO PRN (15:55)
[2020-12-28] MEDS ORDERED: THIAMINE 100 MG TAB PO SCH (16:00)
[2020-12-28 18:00] VITALS: BP 115/79
[2020-12-29] MEDS ORDERED: FOLIC ACID 1 MG TAB PO SCH (09:00)
[2020-12-29] MEDS ORDERED: MULTIVITAMINS/MINERALS THERAP 1 TAB PO SCH (09:00)
== END 2020-12-28 18:03 | disposition home or self-care (01) ==
LOC: M ED 13:57
DX: F10.129 Alcohol abuse with intoxication, unspecified (principal); Y90.1 Blood alcohol level of 20-39 mg/100 ml; F41.9 Anxiety disorder, unspecified; Z79.899 Other long term (current) drug therapy; Z79.82 Long term (current) use of aspirin; F17.210 Nicotine dependence, cigarettes, uncomplicated

== ENCOUNTER 2020-12-29 19:21 | Emergency (ER) | payer OTHER ==
[~2020-12-29] VITALS: Ht 172.7 cm; Wt 75.0 kg
[2020-12-29 22:00] VITALS: BP 115/76
== END 2020-12-29 22:36 | disposition left against medical advice (07) ==
LOC: M ED 19:21
DX: F10.129 Alcohol abuse with intoxication, unspecified (principal); E78.9 Disorder of lipoprotein metabolism, unspecified; Z79.899 Other long term (current) drug therapy; Z79.82 Long term (current) use of aspirin

== ENCOUNTER 2021-01-19 12:15 | Observation (INO) | payer OTHER ==
[~2021-01-19] VITALS: Ht 165.1 cm; Wt 73.3 kg
[2021-01-19] MEDS ORDERED: MULTIVITAMIN -ADULT INJECTION 10 ML, THIAMINE INJection 100 MG, FOLIC ACID 1 MG in NS 1... IV ONE (12:30)
[2021-01-19 12:44] LABS: HEMATOCRIT 42.7 % (42.0-52.0); HEMOGLOBIN 14.7 g/dl (13.5-17.5); MEAN CORPUSCULAR HEMOGLOBIN 33.6 pg (27.0-33.0); MEAN CORPUSCULAR HGB CONC 34.4 g/dl (32.0-36.5); MEAN CORPUSCULAR VOLUME 97.7 fl (80.0-96.0); PLATELET COUNT, AUTOMATED 286 10^3/uL (150-450); RED BLOOD COUNT 4.37 10^6/uL (4.30-6.10)
[2021-01-19 13:23] LABS: ACETAMINOPHEN LEVEL < 2.0 UG/ML (10.0-30.0); ALBUMIN 4.2 GM/DL (3.2-5.2); ALT/SGPT 45 U/L (12-78); BILIRUBIN,DIRECT 0.1 MG/DL (0.0-0.2); BILIRUBIN,TOTAL 0.2 MG/DL (0.2-1.0); BLOOD UREA NITROGEN 5 MG/DL (7-18); CALCIUM LEVEL 8.5 MG/DL (8.8-10.2); CARBON DIOXIDE LEVEL 27 MEQ/L (21-32); CHLORIDE LEVEL 104 MEQ/L (98-107); CREATININE FOR GFR 0.62 MG/DL (0.70-1.30); ETHYL ALCOHOL (ETHANOL) 0.454 % (0.000-0.010); GLOMERULAR FILTRATION RATE > 60.0 (>49); GLUCOSE, FASTING 105 MG/DL (70-100); POTASSIUM SERUM 3.6 MEQ/L (3.5-5.1); SALICYLATE LEVEL 9.6 MG/DL (5.0-30.0); SODIUM LEVEL 139 MEQ/L (136-145); THYROID STIMULATING HORMONE 0.616 uIU/ML (0.358-3.740); TOTAL PROTEIN 7.7 GM/DL (6.4-8.2)
[2021-01-19 17:49] LABS: AMPHETAMINES LEVEL URINE NEGATIVE (NEGATIVE); BARBITURATES URINE NEGATIVE (NEGATIVE); BENZODIAZEPINES URINE NEGATIVE (NEGATIVE); CANNABINOIDS URINE NEGATIVE (NEGATIVE); COCAINE METABOLITE URINE NEGATIVE (NEGATIVE); METHADONE URINE NEGATIVE (NEGATIVE); OPIATES URINE NEGATIVE (NEGATIVE); PHENCYCLIDINE URINE NEGATIVE (NEGATIVE)
[2021-01-19] MEDS ORDERED: ACETAMINOPHEN TAB 650MG DOSE (2X325MG) PO ONE (18:00)
[2021-01-20] MEDS: LORazepam 2 MG TAB PO PRN ×2 (05:13→10:38)
--- NOTE | 2021-01-20 07:13 | REPVR ---
PROCEDURE INFORMATION: Exam: XR Bilateral Hips Exam date and time: 01/20/2021 6:49 AM Age: 60 years old Clinical indication: Other: C/O pain TECHNIQUE: Imaging protocol: XR bilateral hips. Views: 2 views of hips with pelvis when performed. COMPARISON: CT ABD/PEL W/IV CONTRAST ONLY 11/21/2019 5:39 PM FINDINGS: Bones/joints: No acute fracture or dislocation is identified. The femoral head articular contours are maintained, and the femoral heads appear to be of normal density. There is again very mild osteophyte formation about the right hip and bilateral sacroiliac joints, with mild osteophyte formation about the left hip. Mild productive change is again present along the left greater trochanter. Lower lumbar spondylosis is again present. Soft tissues: Unremarkable. Vasculature: Atherosclerotic vascular calcifications are again present. IMPRESSION: Degenerative changes as described. Electronically signed by: Uday Nelson On 01/20/2021 07:13:22 AM
--- NOTE | 2021-01-20 07:15 | REPVR ---
PROCEDURE INFORMATION: Exam: XR Ribs Exam date and time: 01/20/2021 6:49 AM Age: 60 years old Clinical indication: Other: C/O pain TECHNIQUE: Imaging protocol: XR of the ribs. Views: 3 views. Bilateral ribs. COMPARISON: CR PORTABLE CHEST X-RAY 02/20/2020 6:05 PM FINDINGS: Bones/joints: Degenerative changes again involve the spine. No acute fracture of the visualized skeleton is identified. No focal lytic or blastic lesion is identified. Lungs: The lungs are clear. Pleural space: The costophrenic angles are sharp. No pneumothorax is identified. Heart/Mediastinum: The cardiomediastinal silhouette is fairly stable in appearance. Soft tissues: Normal. IMPRESSION: 1. No evidence for acute pulmonary disease. 2. No rib fracture or lesion identified. Electronically signed by: Uday Nelson On 01/20/2021 07:15:00 AM
[2021-01-20] MEDS ORDERED: FOLIC ACID 1 MG TAB PO SCH (09:00)
[2021-01-20] MEDS ORDERED: THIAMINE 100 MG TAB PO SCH (09:00)
[2021-01-20] MEDS ORDERED: MULTIVITAMINS/MINERALS THERAP 1 TAB PO SCH (09:00)
--- NOTE | 2021-01-20 09:32 | ECGEPIP ---
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
[2021-01-20 11:28] LABS: RSV AMPLIFICATION NEGATIVE (NEGATIVE)
[2021-01-20] MEDS ORDERED: MAALOX 30 ML SUSP *UDC PO PRN (15:00)
[2021-01-20] MEDS ORDERED: MOM 30ML SUSPENSION UDC PO PRN (15:00)
[2021-01-20] MEDS ORDERED: LORazepam 2 MG TAB PO PRN (15:00)
[2021-01-20] MEDS ORDERED: ONDANSETRON 4 MG TAB PO PRN (15:10)
[2021-01-20] MEDS ORDERED: NS 500 ML IV ONE (15:15)
[2021-01-20] MEDS ORDERED: LIDOCAINE 5% (LIDODERM) PATCH TD ONE (15:15)
[2021-01-20] MEDS ORDERED: PANTOPRAZOLE 40MG TAB (PROTONIX) PO ONE (15:15)
[2021-01-20] MEDS ORDERED: NICOTINE 14 MG/24 HR TRANSDERMAL TD PRN (15:20)
[2021-01-20 16:31] LABS: HEMATOCRIT 41.4 % (42.0-52.0); MEAN CORPUSCULAR HEMOGLOBIN 33.3 pg (27.0-33.0); MEAN CORPUSCULAR HGB CONC 33.8 g/dl (32.0-36.5); MEAN CORPUSCULAR VOLUME 98.3 fl (80.0-96.0); PLATELET COUNT, AUTOMATED 230 10^3/uL (150-450); RED BLOOD COUNT 4.21 10^6/uL (4.30-6.10); WHITE BLOOD COUNT 4.2 10^3/uL (4.0-10.0)
[2021-01-20 16:58] LABS: ALBUMIN 3.8 GM/DL (3.2-5.2); ALT/SGPT 43 U/L (12-78); BILIRUBIN,TOTAL 0.8 MG/DL (0.2-1.0); BLOOD UREA NITROGEN 11 MG/DL (7-18); CALCIUM LEVEL 9.1 MG/DL (8.8-10.2); CARBON DIOXIDE LEVEL 30 MEQ/L (21-32); CHLORIDE LEVEL 105 MEQ/L (98-107); CREATININE FOR GFR 0.71 MG/DL (0.70-1.30); GLOMERULAR FILTRATION RATE > 60.0 (>49); GLUCOSE, FASTING 104 MG/DL (70-100); SODIUM LEVEL 139 MEQ/L (136-145); TOTAL PROTEIN 6.9 GM/DL (6.4-8.2)
[2021-01-20 17:37] VITALS: BP 146/94
[2021-01-20 17:43] VITALS: BP 146/94
[2021-01-20] MEDS: OXAZEPAM 15 MG CAP PO SCH ×2 (17:52→23:38)
[2021-01-20] MEDS: PANTOPRAZOLE 40MG TAB (PROTONIX) PO SCH (17:53)
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
[2021-01-20 19:48] LABS: INR 1.1; PROTHROMBIN TIME 14.4 SECONDS (12.5-14.3)
[2021-01-20 19:49] LABS: PARTIAL THROMBOPLASTIN TIME 36.6 SECONDS (24.2-38.5)
[2021-01-20] MEDS: THIAMINE 100 MG TAB PO SCH (20:03)
[2021-01-20] MEDS ORDERED: NICOTINE POLACRILEX 2 MG GUM PO PRN (20:45)
[2021-01-20] MEDS ORDERED: ACETAMINOPHEN TAB 650MG DOSE (2X325MG) PO PRN (20:45)
[2021-01-20] MEDS ORDERED: **NOTE PATIENT COMMENT** MISC XX SCH (21:00)
[2021-01-20] MEDS: IBUPROFEN 800 MG TAB PO PRN (21:03)
[2021-01-20 22:00] VITALS: BP 149/88
[2021-01-21] MEDS: OXAZEPAM 15 MG CAP PO SCH ×2 (05:37→11:54)
[2021-01-21] MEDS: IBUPROFEN 800 MG TAB PO PRN (05:38)
[2021-01-21 05:39] VITALS: BP 141/86
[2021-01-21 06:00] VITALS: BP 141/86
[2021-01-21] MEDS: THIAMINE 100 MG TAB PO SCH (08:29)
[2021-01-21] MEDS: PANTOPRAZOLE 40MG TAB (PROTONIX) PO SCH (08:29)
[2021-01-21] MEDS ORDERED: MULTIVITAMINS/MINERALS THERAP 1 TAB PO SCH (09:00)
[2021-01-21] MEDS ORDERED: ENOXAPARIN 40MG/0.4ML SYRINGE (J1650 PER 10MG) SC SCH (09:00)
[2021-01-21] MEDS ORDERED: FOLIC ACID 1 MG TAB PO SCH (09:00)
--- NOTE | 2021-01-21 15:39 | DS.PDOC ---
Discharge Summary General Date of Admission Jan 20, 2021 at 15:41 Date of Discharge 01/21/21 Discharge Summary PROCEDURES PERFORMED DURING STAY: [None]. ADMITTING DIAGNOSES: Alcohol withdrawal L Hip and lower back pain s/p fall HTN Anxiety Nicotine dependence Hx of ulcerative esophagitis and gastritis DISCHARGE DIAGNOSES: Alcohol withdrawal L Hip and lower back pain s/p fall HTN Anxiety Nicotine dependence Hx of ulcerative esophagitis and gastritis COMPLICATIONS/CHIEF COMPLAINT: Alcohol Intoxication, Alcohol Withdrawal. HISTORY OF PRESENT ILLNESS:Patient is a 60 y/o M, with hx of ulcerative esophagitis (dx on 11/22/2019 with EGD), alcohol abuse, nicotine dependence and anxiety, who presented to the ED for EtOH detox (serum EtOH 0.454) and SI. He had a psych eval upon sobering up and was cleared for transfer to rehab. [facility] er, he developed alcohol withdrawal and is now admitted for alcohol withdrawal. He also c/o L hip and rib pain s/p fall in which imaging has been unremarkable. HOSPITAL COURSE: Hospital stay patient received treatment with CIWA protocol. Today patient score 0. Blood pressure under control. DISCHARGE MEDICATIONS: Please see below. ALLERGIES: Please see below. PHYSICAL EXAMINATION ON DISCHARGE: VITAL SIGNS: Please see below. Objective: GENERAL APPEARANCE: NAD HEENT: no scleral icterus, no JVD, EOMI CARDIOVASCULAR: S1S2 LUNGS: CTA ABDOMEN: soft & not tender w palpitation MUSCULOSKELETAL: no cyanosis, no swelling INTEGUMENT: no generalized pallor NEUROLOGICAL: cranial nerve function from 2-12 intact intact, follows commands, speech not dysarthric LABORATORY DATA: Please see below. IMAGING: HIPS BILAT W-AP PELVIS on 01/20/21 reported as: FINDINGS: Bones/joints: No acute fracture or dislocation is identified. The femoral head articular contours are maintained, and the femoral heads appear to be of normal density. There is again very mild osteophyte formation about the right hip and bilateral sacroiliac joints, with mild osteophyte formation about the left hip. Mild productive change is again present along the left greater trochanter. Lower lumbar spondylosis is again present. Soft tissues: Unremarkable. Vasculature: Atherosclerotic vascular calcifications are again present. IMPRESSION: Degenerative changes as described. PROGNOSIS: Fair ACTIVITY: [As tolerated]. DIET: Regular DISCHARGE PLAN: Home DISPOSITION: Home, Self-Care. DISCHARGE INSTRUCTIONS: Stop drinking alcohol ITEMS TO FOLLOWUP ON ON OUTPATIENT: Follow-up with PCP DISCHARGE CONDITION: [Stable]. TIME SPENT ON DISCHARGE: 40minutes. Vital Signs/I&Os Vital Signs Date Time Temp Pulse Resp B/P (MAP) Pulse Ox O2 Delivery O2 Flow Rate FiO2 01/21/21 06:00 97.9 73 17 141/86 (104) 98 Room Air I&O- Last 24 Hours up to 6 AM 01/21/21 06:00 Intake Total 950 ml Output Total 675 ml Balance 275 ml Laboratory Data Labs 24H Laboratory Tests 2 01/20/21 16:20: Nucleated Red Blood Cells % (auto) 0.0, Anion Gap 4L, Glomerular Filtration Rate > 60.0, Calcium Level 9.1, Total Bilirubin 0.8#, Aspartate Amino Transf (AST/SGOT) 25, Alanine Aminotransferase (ALT/SGPT) 43, Alkaline Phosphatase 61, Total Protein 6.9, Albumin 3.8, Albumin/Globulin Ratio 1.2 01/20/21 18:39: Prothrombin Time 14.4H, Prothromb Time International Ratio 1.10, Activated Partial Thromboplast Time 36.6 CBC/BMP Laboratory Tests 01/20/21 16:20 Discharge Medications Scheduled PRN Buspirone HCl (Buspirone HCl) 10 Mg Tablet, 10 MG PO TID PRN for ANXIETY, (Reported) Allergies Coded Allergies: No Known Allergies (Unverified , 05/08/19) CRISTIANO MILNER DO January 21, 2021 15:39
== END 2021-01-21 12:00 | disposition home or self-care (01) ==
LOC: M ED 12:15 → M ED INP 01-20 15:41 → ENRESERV 01-20 17:06 → M MSPAV 01-20 17:36
PROVIDERS: ADMIT Internal Medicine; ATTEND Internal Medicine
DX: F10.230 Alcohol dependence with withdrawal, uncomplicated (principal); R07.81 Pleurodynia; M54.5 Low back pain; M25.552 Pain in left hip; R29.6 Repeated falls; F41.9 Anxiety disorder, unspecified; I10 Essential (primary) hypertension; K22.10 Ulcer of esophagus without bleeding; K29.70 Gastritis, unspecified, without bleeding; F17.210 Nicotine dependence, cigarettes, uncomplicated
CPT/HCPCS: 36415; 71110; 73521; 80048; 80053; 80076; 80143; 80307; 82077; 84443; 85027; 85610; 85730; 87631; 93005; 94760; 96360; 96361; 96372; 99285; J1650

== ENCOUNTER 2021-02-10 16:46 | Emergency (ER) | payer OTHER ==
[~2021-02-10] VITALS: Ht 175.3 cm; Wt 75.9 kg
[2021-02-10 17:59] LABS: HEMATOCRIT 41.3 % (42.0-52.0); HEMOGLOBIN 14.2 g/dl (13.5-17.5); MEAN CORPUSCULAR HEMOGLOBIN 33.6 pg (27.0-33.0); MEAN CORPUSCULAR HGB CONC 34.4 g/dl (32.0-36.5); MEAN CORPUSCULAR VOLUME 97.9 fl (80.0-96.0); PLATELET COUNT, AUTOMATED 308 10^3/uL (150-450); RED BLOOD COUNT 4.22 10^6/uL (4.30-6.10); WHITE BLOOD COUNT 5.5 10^3/uL (4.0-10.0)
[2021-02-10 18:25] LABS: BLOOD UREA NITROGEN 6 MG/DL (7-18); CALCIUM LEVEL 8.7 MG/DL (8.8-10.2); CARBON DIOXIDE LEVEL 26 MEQ/L (21-32); CHLORIDE LEVEL 107 MEQ/L (98-107); CREATININE FOR GFR 0.59 MG/DL (0.70-1.30); ETHYL ALCOHOL (ETHANOL) 0.384 % (0.000-0.010); GLOMERULAR FILTRATION RATE > 60.0 (>49); GLUCOSE, FASTING 95 MG/DL (70-100); SODIUM LEVEL 141 MEQ/L (136-145)
[2021-02-10] MEDS: NS 1,000 ML IV SCH (19:28)
[2021-02-10 21:32] LABS: RSV AMPLIFICATION NEGATIVE (NEGATIVE)
[2021-02-11] MEDS ORDERED: OXAZEPAM 15 MG CAP PO ONE (00:05)
[2021-02-11] MEDS ORDERED: THIAMINE 100 MG TAB PO ONE (00:05)
[2021-02-11] MEDS: NS 1,000 ML IV SCH (01:45)
[2021-02-11 03:05] VITALS: BP 117/73
== END 2021-02-11 03:09 | disposition short-term general hospital (02) ==
LOC: EDBD 16:46 → M ED 16:46
DX: F10.220 Alcohol dependence with intoxication, uncomplicated (principal); F17.200 Nicotine dependence, unspecified, uncomplicated

== ENCOUNTER 2021-05-01 20:49 | Emergency (ER) | payer OTHER ==
[~2021-05-01] VITALS: Ht 167.6 cm; Wt 65.9 kg
[2021-05-01] MEDS ORDERED: MULTIVITAMIN -ADULT INJECTION 10 ML, THIAMINE INJection 100 MG, FOLIC ACID 1 MG in NS 1... IV ONE (21:15)
[2021-05-01] MEDS ORDERED: ONDANSETRON 4MG/2ML VIAL IV ONE (21:30)
[2021-05-01 21:38] LABS: BASO % 0.5 % (0.0-1.0); EOS # 0.2 10^3/uL (0.0-0.5); EOS % 3.5 % (0.0-3.0); HEMOGLOBIN 14.2 g/dl (13.5-17.5); LYMPH # 2.6 10^3/uL (1.5-5.0); LYMPH % 46.4 % (24.0-44.0); MEAN CORPUSCULAR HEMOGLOBIN 34.2 pg (27.0-33.0); MEAN CORPUSCULAR HGB CONC 35.5 g/dl (32.0-36.5); MEAN CORPUSCULAR VOLUME 96.4 fl (80.0-96.0); MONO # 0.7 10^3/uL (0.0-0.8); MONO % 11.7 % (2.0-8.0); NEUTROPHILS # 2.1 10^3/uL (1.5-8.5); NEUTROPHILS % 37.5 % (36.0-66.0); PLATELET COUNT, AUTOMATED 219 10^3/uL (150-450); RED BLOOD COUNT 4.15 10^6/uL (4.30-6.10); WHITE BLOOD COUNT 5.7 10^3/uL (4.0-10.0)
[2021-05-01 22:18] LABS: ALT/SGPT 52 U/L (12-78); BILIRUBIN,TOTAL 0.4 MG/DL (0.2-1.0); BLOOD UREA NITROGEN 5 MG/DL (7-18); CALCIUM LEVEL 8.6 MG/DL (8.8-10.2); CARBON DIOXIDE LEVEL 21 MEQ/L (21-32); CHLORIDE LEVEL 99 MEQ/L (98-107); CREATININE FOR GFR 0.65 MG/DL (0.70-1.30); ETHYL ALCOHOL (ETHANOL) 0.327 % (0.000-0.010); GLOMERULAR FILTRATION RATE > 60.0 (>49); GLUCOSE, FASTING 97 MG/DL (70-100); POTASSIUM SERUM 3.6 MEQ/L (3.5-5.1); SODIUM LEVEL 132 MEQ/L (136-145); TOTAL PROTEIN 7.1 GM/DL (6.4-8.2)
[2021-05-01 22:45] VITALS: BP 111/75
== END 2021-05-01 23:16 | disposition home or self-care (01) ==
LOC: M ED 20:49
DX: F10.20 Alcohol dependence, uncomplicated (principal); Y90.1 Blood alcohol level of 20-39 mg/100 ml; E87.1 Hypo-osmolality and hyponatremia
CPT/HCPCS: 80053; 82077; 83735; 85025; 96365; 96366; 96375; 99284; J2405; J3411

== ENCOUNTER 2021-05-09 16:26 | Emergency (ER) | payer OTHER ==
[~2021-05-09] VITALS: Ht 167.6 cm; Wt 68.2 kg
[2021-05-09 16:27] VITALS: BP 126/67
== END 2021-05-09 17:43 | disposition left against medical advice (07) ==
LOC: M ED 16:26
DX: Z53.21 Procedure and treatment not carried out due to patient leaving prior to being seen by health care provider (principal)

== ENCOUNTER 2021-05-18 01:22 | Emergency (ER) | payer OTHER ==
[~2021-05-18] VITALS: Ht 167.6 cm; Wt 68.1 kg
[2021-05-18] MEDS ORDERED: BOOSTRIX/ADACEL VACCINE (DIPHTH/PERTUSS/ACELL/TETANUS) 0.5ML SYR IM ONE (01:40)
[2021-05-18 01:49] LABS: BASO # 0.1 10^3/uL (0.0-0.2); BASO % 0.8 % (0.0-1.0); EOS # 0.2 10^3/uL (0.0-0.5); EOS % 3.4 % (0.0-3.0); HEMATOCRIT 39.4 % (42.0-52.0); HEMOGLOBIN 14.1 g/dl (13.5-17.5); LYMPH # 2.8 10^3/uL (1.5-5.0); MEAN CORPUSCULAR HEMOGLOBIN 34.2 pg (27.0-33.0); MEAN CORPUSCULAR HGB CONC 35.8 g/dl (32.0-36.5); MEAN CORPUSCULAR VOLUME 95.6 fl (80.0-96.0); MONO # 0.6 10^3/uL (0.0-0.8); MONO % 9.9 % (2.0-8.0); NEUTROPHILS # 2.7 10^3/uL (1.5-8.5); NEUTROPHILS % 42.4 % (36.0-66.0); PLATELET COUNT, AUTOMATED 265 10^3/uL (150-450); RED BLOOD COUNT 4.12 10^6/uL (4.30-6.10); WHITE BLOOD COUNT 6.4 10^3/uL (4.0-10.0)
[2021-05-18] MEDS ORDERED: ISOVUE-370 76% 100ML VIAL As Ordered ONE (01:53)
[2021-05-18 02:31] LABS: ALBUMIN 3.8 GM/DL (3.2-5.2); ALT/SGPT 45 U/L (12-78); BILIRUBIN,DIRECT < 0.1 MG/DL (0.0-0.2); BILIRUBIN,TOTAL 0.2 MG/DL (0.2-1.0); ETHYL ALCOHOL (ETHANOL) 0.377 % (0.000-0.010); TOTAL PROTEIN 6.9 GM/DL (6.4-8.2)
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
[2021-05-18] MEDS ORDERED: POTASSIUM CHLORIDE 10 MEQ SR TABLET PO ONE (06:05)
[2021-05-18 06:30] VITALS: BP 108/76
== END 2021-05-18 06:50 | disposition home or self-care (01) ==
LOC: EDBD 01:22 → M ED 01:22
DX: F10.229 Alcohol dependence with intoxication, unspecified (principal); Y90.1 Blood alcohol level of 20-39 mg/100 ml; S09.90XA Unspecified injury of head, initial encounter; W18.39XA Other fall on same level, initial encounter; Y92.89 Other specified places as the place of occurrence of the external cause; F17.210 Nicotine dependence, cigarettes, uncomplicated; F12.20 Cannabis dependence, uncomplicated
CPT/HCPCS: 36415; 70450; 71260; 72125; 74177; 80047; 80076; 82077; 85025; 90471; 90715; 93041; 99285; Q9967

== ENCOUNTER 2021-05-19 22:04 | Emergency (ER) | payer OTHER ==
[~2021-05-19] VITALS: Ht 167.6 cm; Wt 63.6 kg
[2021-05-19 22:11] VITALS: BP 135/88
== END 2021-05-19 22:28 | disposition left against medical advice (07) ==
LOC: M ED 22:04
DX: S09.90XA Unspecified injury of head, initial encounter (principal); W01.10XA Fall on same level from slipping, tripping and stumbling with subsequent striking against unspecified object, initial encounter; Y92.410 Unspecified street and highway as the place of occurrence of the external cause; Y93.9 Activity, unspecified; Y99.9 Unspecified external cause status; F10.10 Alcohol abuse, uncomplicated

== ENCOUNTER 2021-05-23 17:33 | Emergency (ER) | payer OTHER ==
[2021-05-23] MEDS ORDERED: OXAZEPAM 15 MG CAP PO ONE (18:20)
--- NOTE | 2021-05-23 18:20 | REP ---
INDICATION: chest pain. COMPARISON: Comparison chest x-ray January 20, 2021. TECHNIQUE: Portable sitting AP chest radiograph. FINDINGS: The lungs are symmetrically aerated and clear. The pleural angles are sharp. Heart size is normal. Thoracic aorta is slightly tortuous. Pulmonary vasculature is not increased. No acute bony abnormality is seen. IMPRESSION: No active disease. <Electronically signed by Garo Cardona > 05/23/21 [id number]
[2021-05-23 18:24] LABS: BASO % 0.9 % (0.0-1.0); EOS # 0.1 10^3/uL (0.0-0.5); EOS % 3.2 % (0.0-3.0); HEMATOCRIT 36.6 % (42.0-52.0); HEMOGLOBIN 12.9 g/dl (13.5-17.5); LYMPH # 1.6 10^3/uL (1.5-5.0); LYMPH % 46.6 % (24.0-44.0); MEAN CORPUSCULAR HEMOGLOBIN 34.2 pg (27.0-33.0); MEAN CORPUSCULAR HGB CONC 35.2 g/dl (32.0-36.5); MEAN CORPUSCULAR VOLUME 97.1 fl (80.0-96.0); MONO # 0.4 10^3/uL (0.0-0.8); MONO % 11.5 % (2.0-8.0); NEUTROPHILS # 1.3 10^3/uL (1.5-8.5); NEUTROPHILS % 37.8 % (36.0-66.0); PLATELET COUNT, AUTOMATED 220 10^3/uL (150-450); RED BLOOD COUNT 3.77 10^6/uL (4.30-6.10); WHITE BLOOD COUNT 3.5 10^3/uL (4.0-10.0)
[2021-05-23] MEDS ORDERED: POTASSIUM CHLORIDE 10 MEQ SR TABLET PO ONE (19:10)
[2021-05-23 19:11] LABS: ALBUMIN 3.3 GM/DL (3.2-5.2); ALT/SGPT 66 U/L (12-78); BILIRUBIN,DIRECT 0.1 MG/DL (0.0-0.2); BILIRUBIN,TOTAL 0.4 MG/DL (0.2-1.0); BLOOD UREA NITROGEN 4 MG/DL (7-18); CALCIUM LEVEL 7.8 MG/DL (8.8-10.2); CARBON DIOXIDE LEVEL 31 MEQ/L (21-32); CHLORIDE LEVEL 103 MEQ/L (98-107); CK-MB VALUE MASS 5.5 NG/ML (<3.6); CPK CREATINE PHOSPHOKINASE 692 U/L (39-308); CREATININE FOR GFR 0.58 MG/DL (0.70-1.30); ETHYL ALCOHOL (ETHANOL) 0.325 % (0.000-0.010); GLOMERULAR FILTRATION RATE > 60.0 (>49); GLUCOSE, FASTING 96 MG/DL (70-100); LIPASE 128 U/L (73-393); MB/CK RELATIVE INDEX 0.79 (< OR =4); POTASSIUM SERUM 2.9 MEQ/L (3.5-5.1); SODIUM LEVEL 139 MEQ/L (136-145); TOTAL PROTEIN 6.1 GM/DL (6.4-8.2); TROPONIN I < 0.02 NG/ML (< 0.10)
[2021-05-23 19:34] LABS: MAGNESIUM LEVEL 2.1 MG/DL (1.8-2.4)
[2021-05-24 00:05] VITALS: BP 123/69
--- NOTE | 2021-05-24 19:22 | ECGEPIP ---
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
== END 2021-05-24 00:08 | disposition home or self-care (01) ==
LOC: M ED 17:33 → EDBD 17:33 → M ED 05-24 00:08
DX: F10.129 Alcohol abuse with intoxication, unspecified (principal); Y90.1 Blood alcohol level of 20-39 mg/100 ml; E87.6 Hypokalemia; F41.9 Anxiety disorder, unspecified; F17.210 Nicotine dependence, cigarettes, uncomplicated

== ENCOUNTER 2021-06-03 01:53 | Emergency (ER) | payer OTHER ==
[~2021-06-03] VITALS: Ht 167.6 cm; Wt 63.6 kg
[2021-06-03 02:29] LABS: HEMATOCRIT 40.9 % (42.0-52.0); HEMOGLOBIN 13.7 g/dl (13.5-17.5); MEAN CORPUSCULAR HEMOGLOBIN 34.6 pg (27.0-33.0); MEAN CORPUSCULAR HGB CONC 33.5 g/dl (32.0-36.5); MEAN CORPUSCULAR VOLUME 103.3 fl (80.0-96.0); PLATELET COUNT, AUTOMATED 268 10^3/uL (150-450); RED BLOOD COUNT 3.96 10^6/uL (4.30-6.10); WHITE BLOOD COUNT 4.8 10^3/uL (4.0-10.0)
[2021-06-03 03:00] LABS: ACETAMINOPHEN LEVEL < 2.0 UG/ML (10.0-30.0); ALBUMIN 3.9 GM/DL (3.2-5.2); ALT/SGPT 57 U/L (12-78); BILIRUBIN,DIRECT < 0.1 MG/DL (0.0-0.2); BILIRUBIN,TOTAL 0.2 MG/DL (0.2-1.0); BLOOD UREA NITROGEN 9 MG/DL (7-18); CALCIUM LEVEL 8.6 MG/DL (8.8-10.2); CARBON DIOXIDE LEVEL 30 MEQ/L (21-32); CHLORIDE LEVEL 110 MEQ/L (98-107); CREATININE FOR GFR 0.67 MG/DL (0.70-1.30); ETHYL ALCOHOL (ETHANOL) 0.342 % (0.000-0.010); GLOMERULAR FILTRATION RATE > 60.0 (>49); GLUCOSE, FASTING 90 MG/DL (70-100); POTASSIUM SERUM 4.7 MEQ/L (3.5-5.1); SALICYLATE LEVEL 2.2 MG/DL (5.0-30.0); SODIUM LEVEL 143 MEQ/L (136-145); TOTAL PROTEIN 7.4 GM/DL (6.4-8.2)
[2021-06-03 04:52] LABS: AMPHETAMINES LEVEL URINE NEGATIVE (NEGATIVE); BARBITURATES URINE NEGATIVE (NEGATIVE); BENZODIAZEPINES URINE NEGATIVE (NEGATIVE); CANNABINOIDS URINE POSITIVE (NEGATIVE); COCAINE METABOLITE URINE NEGATIVE (NEGATIVE); METHADONE URINE NEGATIVE (NEGATIVE); OPIATES URINE NEGATIVE (NEGATIVE); PHENCYCLIDINE URINE NEGATIVE (NEGATIVE)
[2021-06-03] MEDS ORDERED: LORazepam 2 MG TAB PO PRN (08:25)
[2021-06-03] MEDS ORDERED: THIAMINE 100 MG TAB PO SCH (09:00)
[2021-06-03] MEDS ORDERED: MULTIVITAMINS/MINERALS THERAP 1 TAB PO SCH (09:00)
[2021-06-03] MEDS ORDERED: FOLIC ACID 1 MG TAB PO SCH (09:00)
[2021-06-03 13:08] VITALS: BP 122/82
== END 2021-06-03 13:45 | disposition home or self-care (01) ==
LOC: M ED 01:53
DX: F10.129 Alcohol abuse with intoxication, unspecified (principal); Y90.1 Blood alcohol level of 20-39 mg/100 ml

== ENCOUNTER 2021-06-13 21:29 | Emergency (ER) | payer OTHER ==
[~2021-06-13] VITALS: Ht 167.6 cm; Wt 65.5 kg
[2021-06-13 22:13] LABS: BASO # 0.1 10^3/uL (0.0-0.2); BASO % 0.9 % (0.0-1.0); EOS # 0.3 10^3/uL (0.0-0.5); EOS % 3.8 % (0.0-3.0); HEMATOCRIT 40.6 % (42.0-52.0); LYMPH # 2.8 10^3/uL (1.5-5.0); LYMPH % 41.7 % (24.0-44.0); MEAN CORPUSCULAR HEMOGLOBIN 34.5 pg (27.0-33.0); MEAN CORPUSCULAR HGB CONC 34.5 g/dl (32.0-36.5); MONO # 0.7 10^3/uL (0.0-0.8); MONO % 10.2 % (2.0-8.0); NEUTROPHILS # 2.9 10^3/uL (1.5-8.5); NEUTROPHILS % 43.1 % (36.0-66.0); PLATELET COUNT, AUTOMATED 251 10^3/uL (150-450); RED BLOOD COUNT 4.06 10^6/uL (4.30-6.10); WHITE BLOOD COUNT 6.8 10^3/uL (4.0-10.0)
[2021-06-13 22:50] LABS: ACETAMINOPHEN LEVEL < 2.0 UG/ML (10.0-30.0); ALBUMIN 3.9 GM/DL (3.2-5.2); ALT/SGPT 42 U/L (12-78); BILIRUBIN,DIRECT 0.1 MG/DL (0.0-0.2); BILIRUBIN,TOTAL 0.3 MG/DL (0.2-1.0); BLOOD UREA NITROGEN 8 MG/DL (7-18); CALCIUM LEVEL 8.9 MG/DL (8.8-10.2); CARBON DIOXIDE LEVEL 22 MEQ/L (21-32); CHLORIDE LEVEL 108 MEQ/L (98-107); CPK CREATINE PHOSPHOKINASE 122 U/L (39-308); CREATININE FOR GFR 0.54 MG/DL (0.70-1.30); ETHYL ALCOHOL (ETHANOL) 0.304 % (0.000-0.010); GLOMERULAR FILTRATION RATE > 60.0 (>49); GLUCOSE, FASTING 109 MG/DL (70-100); POTASSIUM SERUM 4.3 MEQ/L (3.5-5.1); SALICYLATE LEVEL 7.8 MG/DL (5.0-30.0); SODIUM LEVEL 139 MEQ/L (136-145); TOTAL PROTEIN 7.3 GM/DL (6.4-8.2)
[2021-06-13] MEDS ORDERED: MULTIVITAMIN -ADULT INJECTION 10 ML, THIAMINE INJection 100 MG, FOLIC ACID 1 MG in NS 1... IV ONE (23:00)
[2021-06-13] MEDS ORDERED: NS 500 ML IV ONE (23:00)
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
[2021-06-14] MEDS ORDERED: LORazepam 2 MG TAB PO PRN (00:40)
[2021-06-14] MEDS ORDERED: THIAMINE 100 MG TAB PO SCH ×2 (00:44→09:00)
[2021-06-14] MEDS ORDERED: THIAMINE 100 MG TAB As Ordered ONE (00:55)
[2021-06-14 03:02] LABS: ACETONE/KETONE 1.67 MG/DL (<2.81)
[2021-06-14 03:05] LABS: OSMOLALITY SERUM 355 MOSM/KG (280-301)
--- NOTE | 2021-06-14 05:35 | ECGEPIP ---
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
[2021-06-14 09:00] VITALS: BP 146/86
== END 2021-06-14 09:23 | disposition home or self-care (01) ==
LOC: M ED 21:29
DX: F10.129 Alcohol abuse with intoxication, unspecified (principal); Y90.1 Blood alcohol level of 20-39 mg/100 ml
CPT/HCPCS: 36415; 70450; 72125; 80047; 80048; 80076; 80143; 82010; 82077; 82550; 83930; 84443; 85025; 87505; 93005; 93041; 94760; 99285; J3411

== ENCOUNTER 2021-07-21 00:18 | Emergency (ER) | payer OTHER ==
[~2021-07-21] VITALS: Ht 167.6 cm; Wt 63.6 kg
[2021-07-21 01:02] LABS: HEMATOCRIT 41.5 % (42.0-52.0); HEMOGLOBIN 14.2 g/dl (13.5-17.5); MEAN CORPUSCULAR HGB CONC 34.2 g/dl (32.0-36.5); MEAN CORPUSCULAR VOLUME 99.3 fl (80.0-96.0); PLATELET COUNT, AUTOMATED 262 10^3/uL (150-450); RED BLOOD COUNT 4.18 10^6/uL (4.30-6.10); WHITE BLOOD COUNT 6.8 10^3/uL (4.0-10.0)
[2021-07-21 01:30] LABS: AMPHETAMINES LEVEL URINE NEGATIVE (NEGATIVE); BARBITURATES URINE NEGATIVE (NEGATIVE); BENZODIAZEPINES URINE NEGATIVE (NEGATIVE); CANNABINOIDS URINE POSITIVE (NEGATIVE); COCAINE METABOLITE URINE NEGATIVE (NEGATIVE); METHADONE URINE NEGATIVE (NEGATIVE); OPIATES URINE NEGATIVE (NEGATIVE); PHENCYCLIDINE URINE NEGATIVE (NEGATIVE)
[2021-07-21 01:36] LABS: ACETAMINOPHEN LEVEL < 2.0 UG/ML (10.0-30.0); ALBUMIN 3.8 GM/DL (3.2-5.2); ALT/SGPT 33 U/L (12-78); BILIRUBIN,DIRECT < 0.1 MG/DL (0.0-0.2); BILIRUBIN,TOTAL 0.2 MG/DL (0.2-1.0); BLOOD UREA NITROGEN 13 MG/DL (7-18); CALCIUM LEVEL 9.2 MG/DL (8.8-10.2); CARBON DIOXIDE LEVEL 25 MEQ/L (21-32); CHLORIDE LEVEL 109 MEQ/L (98-107); CREATININE FOR GFR 0.75 MG/DL (0.70-1.30); GLOMERULAR FILTRATION RATE > 60.0 (>49); GLUCOSE, FASTING 106 MG/DL (70-100); POTASSIUM SERUM 3.8 MEQ/L (3.5-5.1); SALICYLATE LEVEL 2.5 MG/DL (5.0-30.0); SODIUM LEVEL 140 MEQ/L (136-145); TOTAL PROTEIN 6.9 GM/DL (6.4-8.2)
[2021-07-21] MEDS ORDERED: LORazepam 2 MG TAB PO PRN (03:50)
[2021-07-21 05:09] VITALS: BP 128/76
[2021-07-21] MEDS ORDERED: MULTIVITAMINS/MINERALS THERAP 1 TAB PO SCH (09:00)
[2021-07-21] MEDS ORDERED: FOLIC ACID 1 MG TAB PO SCH (09:00)
[2021-07-21] MEDS ORDERED: THIAMINE 100 MG TAB PO SCH (09:00)
== END 2021-07-21 06:22 | disposition home or self-care (01) ==
LOC: M ED 00:18
DX: F10.129 Alcohol abuse with intoxication, unspecified (principal); Y90.1 Blood alcohol level of 20-39 mg/100 ml; F33.9 Major depressive disorder, recurrent, unspecified; F17.210 Nicotine dependence, cigarettes, uncomplicated

== ENCOUNTER 2022-03-15 19:24 | Emergency (ER) | payer OTHER | END 2022-03-15 19:28 | disposition left against medical advice (07) | LOC: M ED 19:24 | DX: Z53.29 Procedure and treatment not carried out because of patient's decision for other reasons (principal) ==

== ENCOUNTER 2022-03-24 14:44 | Emergency (ER) | payer OTHER ==
[~2022-03-24] VITALS: Ht 172.7 cm; Wt 81.8 kg
[2022-03-24 15:58] VITALS: BP 132/70
== END 2022-03-24 15:59 | disposition left against medical advice (07) ==
LOC: M ED 14:44
DX: F10.129 Alcohol abuse with intoxication, unspecified (principal); F17.200 Nicotine dependence, unspecified, uncomplicated

== ENCOUNTER 2022-04-26 09:26 | Emergency (ER) | payer OTHER ==
[~2022-04-26] VITALS: Ht 167.6 cm; Wt 69.0 kg
[2022-04-26 09:27] VITALS: BP 119/92
== END 2022-04-26 10:15 | disposition left against medical advice (07) ==
LOC: M ED 09:26
DX: Z53.29 Procedure and treatment not carried out because of patient's decision for other reasons (principal)

== ENCOUNTER 2022-05-02 23:51 | Emergency (ER) | payer OTHER ==
[~2022-05-02] VITALS: Ht 167.6 cm; Wt 66.8 kg
[2022-05-03 01:58] LABS: BASO % 0.6 % (0.0-1.0); EOS # 0.1 10^3/uL (0.0-0.5); EOS % 1.7 % (0.0-3.0); HEMATOCRIT 37.9 % (42.0-52.0); HEMOGLOBIN 13.7 g/dl (13.5-17.5); LYMPH # 1.9 10^3/uL (1.5-5.0); LYMPH % 34.2 % (24.0-44.0); MEAN CORPUSCULAR HEMOGLOBIN 34.4 pg (27.0-33.0); MEAN CORPUSCULAR HGB CONC 36.1 g/dl (32.0-36.5); MEAN CORPUSCULAR VOLUME 95.2 fl (80.0-96.0); MONO # 0.6 10^3/uL (0.0-0.8); MONO % 11.2 % (2.0-8.0); NEUTROPHILS # 2.8 10^3/uL (1.5-8.5); NEUTROPHILS % 51.9 % (36.0-66.0); PLATELET COUNT, AUTOMATED 227 10^3/uL (150-450); RED BLOOD COUNT 3.98 10^6/uL (4.30-6.10); WHITE BLOOD COUNT 5.4 10^3/uL (4.0-10.0)
[2022-05-03 02:25] LABS: BLOOD UREA NITROGEN 4 MG/DL (7-18); CALCIUM LEVEL 8.6 MG/DL (8.8-10.2); CARBON DIOXIDE LEVEL 30 MEQ/L (21-32); CHLORIDE LEVEL 94 MEQ/L (98-107); CREATININE FOR GFR 0.58 MG/DL (0.70-1.30); ETHYL ALCOHOL (ETHANOL) 0.188 % (0.000-0.010); GLOMERULAR FILTRATION RATE > 60.0 (>49); GLUCOSE, FASTING 95 MG/DL (70-100); POTASSIUM SERUM 4.2 MEQ/L (3.5-5.1); SODIUM LEVEL 131 MEQ/L (136-145)
[2022-05-03] MEDS ORDERED: MULTIVITAMIN -ADULT INJECTION 10 ML, THIAMINE INJection 100 MG, FOLIC ACID 1 MG in NS 1... IV ONE (08:10)
[2022-05-03 08:39] LABS: ALT/SGPT 75 U/L (12-78); BILIRUBIN,DIRECT 0.3 MG/DL (0.0-0.2); BILIRUBIN,TOTAL 0.7 MG/DL (0.2-1.0); TOTAL PROTEIN 7.2 GM/DL (6.4-8.2)
[2022-05-03 10:15] VITALS: BP 137/93
== END 2022-05-03 10:50 | disposition home or self-care (01) ==
LOC: M ED 23:51
DX: F10.129 Alcohol abuse with intoxication, unspecified (principal); Y90.0 Blood alcohol level of less than 20 mg/100 ml; S00.03XA Contusion of scalp, initial encounter; S40.012A Contusion of left shoulder, initial encounter; V03.10XA Pedestrian on foot injured in collision with car, pick-up truck or van in traffic accident, initial encounter; Y92.410 Unspecified street and highway as the place of occurrence of the external cause; F17.200 Nicotine dependence, unspecified, uncomplicated
CPT/HCPCS: 70450; 72125; 73030; 80048; 80076; 82077; 85025; 93005; 96360; 99284; J3411

== ENCOUNTER 2022-05-21 04:16 | Emergency (ER) | payer OTHER ==
[~2022-05-21] VITALS: Ht 167.6 cm; Wt 150.0 kg
[2022-05-21 04:35] VITALS: BP 168/102
== END 2022-05-21 04:55 | disposition home or self-care (01) ==
LOC: M ED 04:16
DX: F10.229 Alcohol dependence with intoxication, unspecified (principal)

== ENCOUNTER 2022-06-01 12:56 | Emergency (ER) | payer OTHER | END 2022-06-01 13:06 | disposition left against medical advice (07) | LOC: EDBD 12:56 → M ED 12:56 | DX: Z53.29 Procedure and treatment not carried out because of patient's decision for other reasons (principal) ==

== ENCOUNTER 2022-06-03 02:20 | Emergency (ER) | payer OTHER ==
[~2022-06-03] VITALS: Ht 167.6 cm; Wt 63.9 kg
[2022-06-03 07:14] VITALS: BP 140/88
== END 2022-06-03 07:30 | disposition home or self-care (01) ==
LOC: EDBD 02:20 → M ED 02:20
DX: F10.229 Alcohol dependence with intoxication, unspecified (principal)

== ENCOUNTER 2022-06-03 15:45 | Emergency (ER) | payer OTHER | END 2022-06-03 20:01 | disposition left against medical advice (07) | LOC: M ED 15:45 | DX: Z53.29 Procedure and treatment not carried out because of patient's decision for other reasons (principal) ==

== ENCOUNTER 2022-06-04 01:51 | Emergency (ER) | payer OTHER ==
[2022-06-04 03:22] VITALS: BP 127/85
== END 2022-06-04 03:29 | disposition home or self-care (01) ==
LOC: EDBD 01:51 → M ED 01:51
DX: F10.129 Alcohol abuse with intoxication, unspecified (principal)

== ENCOUNTER 2024-03-25 21:40 | Emergency (ER) | payer MEDICAID, OTHER, SELFPAY ==
[2024-03-25 21:50] VITALS: BP 112/59; O2SAT 96
[2024-03-25 22:12] VITALS: TEMP 98.1
== END 2024-03-25 22:00 | disposition left against medical advice (07) ==
LOC: M ED 21:40
DX: Z53.21 Procedure and treatment not carried out due to patient leaving prior to being seen by health care provider (principal)

== ENCOUNTER 2024-04-23 21:59 | Emergency (ER) | payer MEDICAID ==
[~2024-04-23] VITALS: Ht 172.7 cm; Wt 67.0 kg
[2024-04-23 22:45] LABS: HEMATOCRIT 36.5 % (42.0-52.0); MEAN CORPUSCULAR HEMOGLOBIN 33.6 pg (27.0-33.0); MEAN CORPUSCULAR HGB CONC 35.6 g/dl (32.0-36.5); MEAN CORPUSCULAR VOLUME 94.3 fl (80.0-96.0); PLATELET COUNT, AUTOMATED 258 10^3/uL (150-450); RED BLOOD COUNT 3.87 10^6/uL (4.30-6.10); WHITE BLOOD COUNT 6.1 10^3/uL (4.0-10.0)
[2024-04-23 23:08] LABS: SALICYLATE LEVEL < 3.0 MG/DL (<30)
[2024-04-23 23:17] LABS: AMPHETAMINES LEVEL URINE NEGATIVE (NEGATIVE); BARBITURATES URINE NEGATIVE (NEGATIVE); BENZODIAZEPINES URINE NEGATIVE (NEGATIVE); CANNABINOIDS URINE NEGATIVE (NEGATIVE); COCAINE METABOLITE URINE NEGATIVE (NEGATIVE); METHADONE URINE NEGATIVE (NEGATIVE); OPIATES URINE NEGATIVE (NEGATIVE); PHENCYCLIDINE URINE NEGATIVE (NEGATIVE)
[2024-04-23 23:17] LABS: ALKALINE PHOSPHATASE 53 U/L (46-116); ALT/SGPT 20 U/L (7.0-40); AST/SGOT 19 U/L (<34); BILIRUBIN,DIRECT 0.1 MG/DL (<0.4); BILIRUBIN,TOTAL 0.4 MG/DL (0.3-1.2); BLOOD UREA NITROGEN 8 MG/DL (9-23); CALCIUM LEVEL 8.3 MG/DL (8.3-10.6); CARBON DIOXIDE LEVEL 22 MMOL/L (20-31); CHLORIDE LEVEL 102 MMOL/L (98-107); CREATININE FOR GFR 0.68 MG/DL (0.70-1.30); GLOMERULAR FILTRATION RATE > 60.0 (>49); GLUCOSE, FASTING 90 MG/DL (74-106); POTASSIUM SERUM 4.1 MMOL/L (3.5-5.1); SODIUM LEVEL 129 MMOL/L (136-145); THYROID STIMULATING HORMONE 0.425 uIU/ML (0.55-4.78); TOTAL PROTEIN 6.5 G/DL (5.7-8.2)
[2024-04-24 05:13] VITALS: BP 118/71; TEMP 98.1; O2SAT 98
== END 2024-04-24 05:27 | disposition home or self-care (01) ==
LOC: M ED 21:59
DX: F10.120 Alcohol abuse with intoxication, uncomplicated (principal)

== ENCOUNTER → 2024-05-05 | Outpatient (REF) | payer MEDICAID ==
[2024-05-05 13:53] LABS: BASO % 0.8 % (0.0-1.0); EOS # 0.5 10^3/uL (0.0-0.5); EOS % 9.3 % (0.0-3.0); HEMATOCRIT 38.5 % (42.0-52.0); LYMPH # 1.6 10^3/uL (1.5-5.0); LYMPH % 30.3 % (24.0-44.0); MEAN CORPUSCULAR HGB CONC 33.8 g/dl (32.0-36.5); MEAN CORPUSCULAR VOLUME 97.7 fl (80.0-96.0); MONO # 0.7 10^3/uL (0.0-0.8); MONO % 13.1 % (2.0-8.0); NEUTROPHILS # 2.4 10^3/uL (1.5-8.5); NEUTROPHILS % 46.3 % (36.0-66.0); PLATELET COUNT, AUTOMATED 276 10^3/uL (150-450); RED BLOOD COUNT 3.94 10^6/uL (4.30-6.10); WHITE BLOOD COUNT 5.3 10^3/uL (4.0-10.0)
[2024-05-05 14:28] LABS: ALBUMIN 3.9 G/DL (3.2-5.2); ALKALINE PHOSPHATASE 78 U/L (46-116); ALT/SGPT 34 U/L (7.0-40); AST/SGOT 21 U/L (<34); BILIRUBIN,TOTAL 0.4 MG/DL (0.3-1.2); BLOOD UREA NITROGEN 15 MG/DL (9-23); CARBON DIOXIDE LEVEL 26 MMOL/L (20-31); CHLORIDE LEVEL 104 MMOL/L (98-107); CHOLESTEROL LEVEL 173 MG/DL (<200); CHOLESTEROL RISK RATIO 2.62 (<5); CREATININE FOR GFR 0.77 MG/DL (0.70-1.30); GLOMERULAR FILTRATION RATE > 60.0 (>49); GLUCOSE, FASTING 73 MG/DL (74-106); HDL CHOLESTEROL 65.8 MG/DL (>40); MAGNESIUM LEVEL 1.9 MG/DL (1.8-2.4); NON-HDL-C 107.2 MG/DL; POTASSIUM SERUM 4.4 MMOL/L (3.5-5.1); SODIUM LEVEL 135 MMOL/L (136-145); THYROID STIMULATING HORMONE 2.199 uIU/ML (0.55-4.78); TOTAL PROTEIN 6.7 G/DL (5.7-8.2); TRIGLYCERIDES LEVEL 56 MG/DL (<150)
[2024-05-05 14:30] LABS: TOTAL 25(OH) VITAMIN D 42.4 NG/ML (20.0-100.0)
[2024-05-07 12:43] LABS: PSA FREE 0.3 ng/mL; PSA TOTAL 1.7 ng/mL (< OR = 4.0)
== END ==
LOC: M LAB REF 12:52
PROVIDERS: ATTEND Nurse Practitioner Family
DX: Z13.220 Encounter for screening for lipoid disorders (principal); Z13.1 Encounter for screening for diabetes mellitus; Z13.29 Encounter for screening for other suspected endocrine disorder; E55.9 Vitamin D deficiency, unspecified; Z12.5 Encounter for screening for malignant neoplasm of prostate

== ENCOUNTER → 2024-07-27 | Outpatient (CLI) | payer MEDICAID | LOC: M OUTALCOH 12:32 | PROVIDERS: ATTEND Psychiatry & Neurology Psychiatry | DX: F10.20 Alcohol dependence, uncomplicated (principal); F17.200 Nicotine dependence, unspecified, uncomplicated ==

== ENCOUNTER 2024-08-19 16:00 | Outpatient (RCR) | payer MEDICAID | END 2024-08-22 | LOC: M OUTALCOH 16:00 | PROVIDERS: ATTEND Psychiatry & Neurology Psychiatry | DX: F10.20 Alcohol dependence, uncomplicated (principal); F17.200 Nicotine dependence, unspecified, uncomplicated ==

== ENCOUNTER 2024-09-21 08:40 | Outpatient (RCR) | payer MEDICAID | END 2024-09-22 | LOC: M OUTALCOH 08:40 | PROVIDERS: ATTEND Psychiatry & Neurology Psychiatry | DX: F10.20 Alcohol dependence, uncomplicated (principal); F17.200 Nicotine dependence, unspecified, uncomplicated ==

== ENCOUNTER 2024-10-09 08:40 | Outpatient (RCR) | payer MEDICAID | END 2024-10-23 | LOC: M OUTALCOH 08:40 | PROVIDERS: ATTEND Psychiatry & Neurology Psychiatry | DX: F10.20 Alcohol dependence, uncomplicated (principal); F17.200 Nicotine dependence, unspecified, uncomplicated ==